=== PATIENT | female | born 1935 | race Caucasian/White ===

== ENCOUNTER 2018-10-27 04:45 | Inpatient (IN) | payer MEDICARE ==
[~2018-10-27] VITALS: Ht 160 cm; Wt 52.2 kg
[2018-10-27] MEDS ORDERED: POLY-VI-SOL W/I50 ML PO (04:50)
[2018-10-27] MEDS ORDERED: DONEPEZIL HCL10 MG PO (04:50)
[2018-10-27] MEDS ORDERED: IBUPROFEN400 MG PO (04:50)
[2018-10-27] MEDS ORDERED: SYNTHROID25 MCG PO (04:51)
[2018-10-27] MEDS ORDERED: ATIVAN1 MG PO (04:51)
[2018-10-27] MEDS ORDERED: MOBIC7.5 MG PO (04:51)
[2018-10-27] MEDS ORDERED: LISINOPRIL10 MG PO (04:51)
[2018-10-27] MEDS ORDERED: METOPROLOL TART50 MG PO (04:52)
[2018-10-27] MEDS ORDERED: ZOLOFT50 MG PO (04:52)
[2018-10-27] MEDS ORDERED: ZOCOR40 MG PO (04:52)
[2018-10-27] MEDS ORDERED: RISPERDAL1 MG PO (04:52)
[2018-10-27 05:38] LABS: BASOPHILS 0.1 % (0-2); EOSINOPHILS 0 % (0-7); HEMOGLOBIN 10.9 g/dL (12-16); IMMATURE GRANULOCYTES 0.2 % (0-5); LYMPHOCYTES 8.1 % (15-50); MCH 31.8 pg (26.0-34.0); MCV 96.2 fL (80.0-100.0); MEAN PLATELET VOLUME 10.5 fL (7.4-10.4); MONOCYTES 3.2 % (2-11); NEUTROPHILS 88.4 % (40-80); PLATELET COUNT 265 10x3/uL (130-400); RBC 3.43 10x6/uL (4.00-5.40); RDW 13.6 % (11.5-14.5); WBC 12.9 10x3/uL (4.8-10.8)
[2018-10-27 05:54] LABS: ALBUMIN 3.4 g/dL (3.4-5.0); ALKALINE PHOSPHATASE 96 U/L (46-116); ALT (SGPT) 63 U/L (10-68); BILIRUBIN - TOTAL 0.26 mg/dL (0.2-1.3); CALC OSMOLALITY 276 mosm/kg (275-300); CALCIUM 8.5 mg/dL (8.5-10.1); CARBON DIOXIDE 26.3 mmol/L (21.0-32.0); CHLORIDE - SERUM 97 mmol/L (98-107); CREATININE - SERUM 1.1 mg/dL (0.6-1.3); GLUCOSE 129 mg/dL (74-106); POTASSIUM - SERUM 3.6 mmol/L (3.5-5.1); PROTEIN - SERUM 7.3 g/dL (6.4-8.2); SODIUM 135 mmol/L (136-145); UREA NITROGEN 27 mg/dL (7-18); eGFR NON AFRICAN AMERICAN 50 mL/min (90-120)
[2018-10-27 05:58] VITALS: BP 145/56
[2018-10-27 06:10] LABS: CKMB 1.2 U/L (0.0-3.6); CREATINE KINASE 93 UL (21-215)
[2018-10-27 06:18] LABS: TROPONIN-I 0.145 ng/mL (0.000-0.060)
--- NOTE | 2018-10-27 06:45 | NUR ---
ATTEMPTED TO CALL REPORT TO [facility]. INFORMED THAT THE DAYSHIFT NURSE WHO WOULD BE TAKING REPORT HAD NO ARRIVED
[2018-10-27 07:00] LABS: APPEARANCE CLEAR (CLEAR); BILIRUBIN NEGATIVE (NEGATIVE); COLOR STRAW (YELLOW); GLUCOSE NEGATIVE (NEGATIVE); KETONE NEGATIVE (NEGATIVE); NITRITE NEGATIVE (NEGATIVE); PROTEIN NEGATIVE (NEGATIVE); UROBILINOGEN NORMAL (NORMAL)
[2018-10-27 07:01] LABS: BACTERIA MODERATE /hpf (NONE SEEN); EPITHELIAL CELLS 0-5 /hpf (0-5)
[2018-10-27] MEDS ORDERED: MYSOLINE 50 MG50 MG PO (08:02)
--- NOTE | 2018-10-27 08:04 | NUR ---
TRANSFER FROM ER BY STRETCHER. OREINTED TO ROOM. CALL LIGHT IN REACH. WILL CONT. PLAN OF CARE.
--- NOTE | 2018-10-27 08:10 | NUR ---
RECIVED FROM ER TO ROOM 2120, FAMILY AT SIDE. ADMT ASSESSMENT PER RN
[2018-10-27 08:12] VITALS: BP 153/63
[2018-10-27 09:08] VITALS: BMI 24.8
--- NOTE | 2018-10-27 10:07 | NUR ---
IN BOILER FITTER AT THIS TIME. WILL CONT. PLAN OF CARE.
[2018-10-27 11:52] VITALS: BP 167/72
--- NOTE | 2018-10-27 12:10 | NUR ---
SWOLLOW EVAL ORDERED DUE TO POSSIBLE ASPIRATION. TO KEEP NPO FOR NOW.
[2018-10-27 13:45] VITALS: Ht 160 cm; Wt 52.2 kg
--- NOTE | 2018-10-27 15:13 | NUR ---
PAULA WOOD BY AT BS.
[2018-10-27 15:31] VITALS: BP 171/82
--- NOTE | 2018-10-27 17:23 | NUR ---
IV STARTED TO LEFT FA WITH 22 GAUGE CATH X 1 STICK BY OBI MCFARLAND. LINE IS PATENT.
--- NOTE | 2018-10-27 17:24 | MORECARE ---
CASE MANAGEMENT DISCHARGE SUMMARY PATIENT: SP GUAMAN UNIT: [id number] ADM DATE: 10/27/18 AGE: 83 : 35 SEX: F ROOM/BED: D.8410 AUTHOR: ANNAMARIA MA PHYSICIAN: REFERRING PHYSICIAN: MARLENE GAYLE DO DATE OF SERVICE: 10/27/18 Discharge Plan Patient Name: SP GUAMAN Facility: [facility]:[place] : 1935 Planned Disposition: Retirement Facility Anticipated Discharge Date: 10/31/18 Discharge Date: Expected LOS: 4 Initial Reviewer: [id number] Initial Review Date: 10/27/2018 Generated: 10/27/18 6:24 pm DCPIA - Discharge Planning Initial Assessment Updated by [email or web address]: Sam Snow on 10/27/18 5:22 pm * Is the patient Alert and Oriented? Yes * How many steps to enter\exit or inside your home? RAMP * PCP DR. VILLA * Pharmacy [facility] * Preadmission Environment Home with Family * ADLs Independent * Equipment Walker * Other Equipment [facility] - MEDICAL EQUIPMENT PROVIDER * List name and contact numbers for known caregivers / representatives who currently or will assist patient after discharge: LEEANNE CHI, GRANDDAUGHTER/GUARDIAN, JANETTE GUAMAN, SON, * Verbal permission to speak to the caregivers and representatives has been obtained from the patient. N/A * Community resources currently utilized None * Please name any agencies selected above. NONE * Additional services required to return to the preadmission environment? Yes * Can the patient safely return to the preadmission environment? Yes * Has this patient been hospitalized within the prior 30 days at any hospital? No Coverage Notice Reviewer: [id number] - Sam Snow Notice Issued Date-Time: 10/27/2018 16:00 Notice Type: Patient Choice Letter Notice Delivered To: Other Relationship to Patient: daughter Child Caregiver Name: LEEANNE CHI Delivery Method: HAND - Hand Delivered Heather Days: Prior Verbal Notification: Recipient Understood Notice: Yes Recipient Signature: Yes Med Rec Note Co-signed by Attending: Coverage Notice Comment: [facility] Patient Name: PS GUAMAN Page 10348 at 1724 All edits/amendments must be made on the electronic document DICTATION DATE: 10/27/181723 R&D ENGINEER: HELEN 10/27/181723 RPT#: [id number] DC DATE: STATUS: ADM IN [facility] [address] [place] [address] END OF REPORT
--- NOTE | 2018-10-27 17:31 | MORECARE ---
CASE MANAGEMENT DISCHARGE SUMMARY PATIENT: SP GUAMAN UNIT: [id number] ADM DATE: 10/27/18 AGE: 83 : 35 SEX: F ROOM/BED: D.3850 AUTHOR: ANNAMARIA MA PHYSICIAN: REFERRING PHYSICIAN: MARLENE GAYLE DO DATE OF SERVICE: 10/27/18 Discharge Plan Patient Name: SP GUAMAN Facility: [facility]:[place] : 1935 Planned Disposition: Custodial Facility Anticipated Discharge Date: 10/31/18 Discharge Date: Expected LOS: 4 Initial Reviewer: [id number] Initial Review Date: 10/27/2018 Generated: 10/27/18 6:31 pm Comments DCP- Discharge Planning Updated by [email or web address]: Sam Snow on 10/27/18 4:[address] Patient Name: SP GUAMAN Admission Status: ER Accout number: [id number] Admission Date: 10-27-2018 : 1935 Admission Diagnosis: Attending: MARLENE GAYLE Current LOS: 1 Anticipated DC Date: 10-31-2018 Planned Disposition: Custodial Facility Primary Insurance: MEDICARE A & B PLANNED EXTERNAL PROVIDER: [facility], MEDICARE REHAB BED Discharge Planning Comments: CM MET WITH PT, PT'S GRANDDAUGHTER / GUARDIAN AND PT'S SON IN ROOM TO DISCUSS DISCHARGE PLANNING AND NEEDS. PT LIVES AT HOME DEPENDENTLY WITH HER ADULT GRANDDAUGHTER WHO ASSISTS WITH FEEDING IF NEEDED, BATHING FOR BALANCE ONLY AND MEDICATION MANAGEMENT. PT HAS A STANDARD WALKER FROM [facility]. PT HAS NO OUTSIDE SERVICES ASSISTING IN THE HOME. CM DISCUSSED AVAILABILITY OF HOME HEALTH, REHAB SERVICES AND MEDICAL EQUIPMENT. PT'S GRANDDAUGHTER WOULD LIKE REHAB FOR PT AT [facility]. SHE IS AWARE THAT PT WILL NEED [facility] SCREENING FOR ADMISSION WELL THREE MIDNIGHTS INPATIENT FOR MEDICARE TO COVER REHAB SERVICES. GRANDDAUGHTER AND PT'S SON ASSISTED WITH DONTAE COMPLETION. SIGNATURES FROM [place] AND DR. SINGH OBTAINED. CHOICE LETTER FOR [facility] SIGNED. CM TO SEND REFERRAL TO [facility] WELL SEND SCREENING TO [facility] ONCE PHYSICAL AND OCCUPATIONAL THERAPY EVALUATIONS ARE COMPLETED. Saw Feeder: Sam Snow DCPIA - Discharge Planning Initial Assessment Updated by [id number]: Sam Snow on 10/27/18 5:22 pm * Is the patient Alert and Oriented? Yes * How many steps to enter\exit or inside your home? RAMP * PCP DR. VILLA * Pharmacy [facility] * Preadmission Environment Home with Family * ADLs Independent * Equipment Walker * Other Equipment [facility] - MEDICAL EQUIPMENT PROVIDER * List name and contact numbers for known caregivers / representatives who currently or will assist patient after discharge: LEEANNE CHI, GRANDDAUGHTER/GUARDIAN, JANETTE GUAMAN, SON, * Verbal permission to speak to the caregivers and representatives has been obtained from the patient. N/A * Community resources currently utilized None * Please name any agencies selected above. NONE * Additional services required to return to the preadmission environment? Yes * Can the patient safely return to the preadmission environment? Yes * Has this patient been hospitalized within the prior 30 days at any hospital? No Coverage Notice Reviewer: [id number] - Sam Snow Notice Issued Date-Time: 10/27/2018 16:00 Notice Type: Patient Choice Letter Notice Delivered To: Other Relationship to Patient: Granddaughter Guest Services Director Name: LEEANNE CHI Delivery Method: HAND - Hand Delivered Heather Days: Prior Verbal Notification: Recipient Understood Notice: Yes Recipient Signature: Yes Med Rec Note Co-signed by Attending: Coverage Notice Comment: [facility] Last DP export: 10/27/18 4:24 p Patient Name: SP GUAMAN Page 31566 at 1731 All edits/amendments must be made on the electronic document DICTATION DATE: 10/27/181729 SLAB LIFTING SUPERVISOR: HELEN 10/27/181729 RPT#: [id number] DC DATE: STATUS: ADM IN [facility] [address] [place] [address] END OF REPORT
--- NOTE | 2018-10-27 19:45 | NUR ---
CHECKED ON PT, PT IS ALERT TO NAME ONLY, HAS MYOCLONIC MOVEMENTS THAT APPEAR TO BE NEUROLOGICAL BUT NURSE HAS NOT CHECKED HISTORY YET. PT IS ALERT, STARTED CRYING ABOUT SOMEONE TAKING HER CLOTHES, CALMED PT DOWN. PT TELEMETRY PLACED BACK ON. TALKED WITH PT ABOUT POC AND PT DID NOT RETAIN. WILL CONTINUE TO REORIENT AND EXPLAIN POC. PT UP TO RESTROOM WITH X1 ASSIST. BALANCE ISSUES DUE TO MYOCLONIC MOVEMENTS. PT URINATED A SMALL AMOUNT AND THAN COMPLAINED OF NOT BEING ABLE TO URINATE. EXPLAINED TO PT IT WAS REPORTED SHE PULLED MCMILLAN CATH OUT TODAY. CLEANED PT BED AND ASSISTED BACK TO BED. PLACED SCDS ON PT O2 PLACED BACK ON 2.5L NC. PT BEDALARM ON AND ACTIVE. BEDLOW AND CALL LIGHT IN REACH. DOOR OPEN AND FREQUENT CHECKS ON PT. WILL CPOC
[2018-10-27 20:00] VITALS: BP 175/85
--- NOTE | 2018-10-27 20:16 | NUR ---
PT YELLING OUT NURSE NAME, WENT AND CHECKED ON PT AND SHE IS UPSET THAT SOMETHING IS SQUEEZING LEGS. EDUCATED PT IN SCD'S AGAIN,. PT SAID OK THAN SET UP AND FREAKED OUT THAT SOMETHING WAS AGAIN SQUEEZING LEGS. TOOK OFF SCD'S BECAUSE PT WAS GETTING UPSET. PT UNABLE TO UNDERSTAND COGNETIVELY THAT IT IS PROTECTING AGAINST BLOOD CLOTS . PT BACK IN BED AND HAS NO S/S OF DISTRESS. PT BEDLOW AND CALL LIGHT IN REACH. BED ALARM ON AND ACTIVE. WILL CPOC
--- NOTE | 2018-10-28 | NUR ---
IV STARTED LEFT FOREARM 22G, PLACED YELLOW GOWN AND TELEMETRY BACK ONTO PT SINCE SHE HAD TOOK IT OFF AGAIN. WENT TO GET TUBING AND ANTIBIOTIC ONCE I CAME BACK PT HAD PULLED OUT IV WITH CATH INTACT AND TAKEN TELEMETRY OFF. CLEANED PT UP AGAIN AND PLACED BACK ON. PT HAS URGENCY AND CONSTANT FEELING THE NEED TO URINATE. PT HAS NO S/S OF DISTRESS. STONE ALARM ON, PT GETTING UP EVERY 30 MIN OR MORE TO URINATE/ATTEMPT TO URINATE AND STAYING IN BATHROOM 10-20 MINS EACH TIME.
--- NOTE | 2018-10-28 03:00 | NUR ---
PT TOOK TELEMETRY OFF ONCE AGAIN. HAS BEEN PLACED ON AT LEAST 4 TIMES. PT WONT KEEP ON, CANNOT KEEP AN IV IN PT EITHER. PT HAS NO S/S OF DISTRESS. WILL CPOC
--- NOTE | 2018-10-28 04:20 | NUR ---
PT ALARM WENT OFF ASSISTED PT TO RESTROOM. ALERT TO NAME ONLY. MYOCLONIC MOVEMENTS DECREASED BUT STILL ACTIVE. PT BREIF CHANGED DUE TO INCONT. URINE IN BREIF DARK,PINK COLORED. PT BACK TO BED. 2.5L O2 NC. PLACED TELEMETRY BACK ON AND ADJUSTED PT IN BED. PT HAS NO S/S OF DISTRESS. DENIES ANY NEEDS. BEDLOW AND STONE ALARM ON AND ACTIVE. WILL CPOC
[2018-10-28 05:17] LABS: BASOPHILS 0.2 % (0-2); EOSINOPHILS 0.2 % (0-7); HEMATOCRIT 29.1 % (36.0-48.0); HEMOGLOBIN 9.5 g/dL (12-16); IMMATURE GRANULOCYTES 0.3 % (0-5); LYMPHOCYTES 18.2 % (15-50); MCH 31.9 pg (26.0-34.0); MCHC 32.6 g/dL (31.0-37.0); MCV 97.7 fL (80.0-100.0); MEAN PLATELET VOLUME 10.7 fL (7.4-10.4); MONOCYTES 5.8 % (2-11); NEUTROPHILS 75.3 % (40-80); PLATELET COUNT 270 10x3/uL (130-400); RBC 2.98 10x6/uL (4.00-5.40); RDW 13.6 % (11.5-14.5); WBC 10.5 10x3/uL (4.8-10.8)
--- NOTE | 2018-10-28 06:35 | NUR ---
PT ASLEEP. RESP EVEN AND UNLABORED. 2.5L O2 NC. PT HAS NO S/S OF DISTRESS. WAKES UP COUGHING FREQUENTLY, NO PRODUCTION OBSEVED. PT BEDLOW AND CALL LIGHT IN REACH. STONE ALARM ON AND ACTIVE. WILL CPOC
[2018-10-28 07:51] LABS: ANION GAP 15.5 mmol/L (8-16); CALCIUM 8.2 mg/dL (8.5-10.1); CREATININE - SERUM 1.1 mg/dL (0.6-1.3); MAGNESIUM - SERUM 1.7 mg/dL (1.8-2.4); PHOSPHOROUS 3.8 mg/dL (2.5-4.9); POTASSIUM - SERUM 3.5 mmol/L (3.5-5.1)
[2018-10-28 08:39] VITALS: BP 156/72
--- NOTE | 2018-10-28 09:29 | NUR ---
RESTS IN BED WITH BED ALARM ON. FAMILY AT BS. CALL LIGHT IN REACH. WILL CONT. PLAN OF CARE.
--- NOTE | 2018-10-28 10:41 | NUR ---
REPORT RECEIVED. WILL CONTINUE WITH POC. PT CURRENTLY LYING SUPINE. CALL LIGHT W/I REACH. FAMILY AT BEDSIDE. PT IS AAO AND UP WITH ASSIST. PT HAS NO PIV. INITIATED NEW PIV TO THE L.FOREARM 22GA X1 ATTEMPT. CONFIRMED PATENCY BY FLUSHING WITH 10CC OF NS. RR EVEN AND UNLABORED ON 2L 02. PT DOES HAVE FREQUENT PRODUCTIVE COUGH. AM MEDICATIONS ADMINISTERED. NS INFUSING @100ML/HR. PT DENIES ANY NEEDS. WILL CTM. 0600 MEDICATIONS NOT GIVEN PER NIGHTSHIFT R/T SYSTEM SHUTDOWN AND NO ACCESS TO PYXIS. WILL RESTART NEXT DOSE.
[2018-10-28 11:36] VITALS: BP 162/56
--- NOTE | 2018-10-28 12:37 | MORECARE ---
CASE MANAGEMENT DISCHARGE SUMMARY PATIENT: SP GUAMAN UNIT: [id number] ADM DATE: 10/27/18 AGE: 83 : 35 SEX: F ROOM/BED: D.5870 AUTHOR: ANNAMARIA MA PHYSICIAN: REFERRING PHYSICIAN: MARLENE GAYLE DO DATE OF SERVICE: 10/28/18 Discharge Plan Patient Name: SP GUAMAN Facility: [facility]:[place] : 1935 Planned Disposition: Detention Facility Anticipated Discharge Date: 10/31/18 Discharge Date: Expected LOS: 4 Initial Reviewer: [id number] Initial Review Date: 10/27/2018 Generated: 10/28/18 1:37 pm Comments DCP- Discharge Planning Updated by [email or web address]: Sam Snow on 10/27/18 4:[address] Patient Name: SP GUAMAN Admission Status: ER Accout number: [id number] Admission Date: 10-27-2018 : 1935 Admission Diagnosis: Attending: MARLENE GAYLE Current LOS: 1 Anticipated DC Date: 10-31-2018 Planned Disposition: Detention Facility Primary Insurance: MEDICARE A & B PLANNED EXTERNAL PROVIDER: [facility], MEDICARE REHAB BED Discharge Planning Comments: CM MET WITH PT, PT'S GRANDDAUGHTER / GUARDIAN AND PT'S SON IN ROOM TO DISCUSS DISCHARGE PLANNING AND NEEDS. PT LIVES AT HOME DEPENDENTLY WITH HER ADULT GRANDDAUGHTER WHO ASSISTS WITH FEEDING IF NEEDED, BATHING FOR BALANCE ONLY AND MEDICATION MANAGEMENT. PT HAS A STANDARD WALKER FROM [facility]. PT HAS NO OUTSIDE SERVICES ASSISTING IN THE HOME. CM DISCUSSED AVAILABILITY OF HOME HEALTH, REHAB SERVICES AND MEDICAL EQUIPMENT. PT'S GRANDDAUGHTER WOULD LIKE REHAB FOR PT AT [facility]. SHE IS AWARE THAT PT WILL NEED [facility] SCREENING FOR ADMISSION WELL THREE MIDNIGHTS INPATIENT FOR MEDICARE TO COVER REHAB SERVICES. GRANDDAUGHTER AND PT'S SON ASSISTED WITH [facility] COMPLETION. SIGNATURES FROM [place] AND DR. SINGH OBTAINED. CHOICE LETTER FOR [facility] SIGNED. CM TO SEND REFERRAL TO [facility] WELL SEND SCREENING TO [facility] ONCE PHYSICAL AND OCCUPATIONAL THERAPY EVALUATIONS ARE COMPLETED. Overlocker: Sam Snow DCPIA - Discharge Planning Initial Assessment Updated by [id number]: Sam Snow on 10/27/18 5:22 pm * Is the patient Alert and Oriented? Yes * How many steps to enter\exit or inside your home? RAMP * PCP DR. VILLA * Pharmacy [facility] * Preadmission Environment Home with Family * ADLs Independent * Equipment Walker * Other Equipment [facility] - MEDICAL EQUIPMENT PROVIDER * List name and contact numbers for known caregivers / representatives who currently or will assist patient after discharge: LEEANNE CHI, GRANDDAUGHTER/GUARDIAN, JANETTE GUAMAN, SON, * Verbal permission to speak to the caregivers and representatives has been obtained from the patient. N/A * Community resources currently utilized None * Please name any agencies selected above. NONE * Additional services required to return to the preadmission environment? Yes * Can the patient safely return to the preadmission environment? Yes * Has this patient been hospitalized within the prior 30 days at any hospital? No External Providers External Provider: RENEE Stinson Next Contact Date: 10/28/2018 Service Request Date: Service Type: Resolution: Reviewer: Comments: External Provider: [facility] Next Contact Date: 10/28/2018 Service Request Date: Service Type: Resolution: Reviewer: Comments: Coverage Notice Reviewer: [id number] - Sam Snow Notice Issued Date-Time: 10/27/2018 16:00 Notice Type: Patient Choice Letter Notice Delivered To: Other Relationship to Patient: Granddaughter Licensed Practical Nurse Instructor Name: LEEANNE CHI Delivery Method: HAND - Hand Delivered Heather Days: Prior Verbal Notification: Recipient Understood Notice: Yes Recipient Signature: Yes Med Rec Note Co-signed by Attending: Coverage Notice Comment: [facility] Last DP export: 10/27/18 4:31 p Patient Name: SP GUAMAN Page 41474 at 1237 All edits/amendments must be made on the electronic document DICTATION DATE: 10/28/18 1237 LEMON GROWER: HELEN 10/28/18 1237 RPT#: [id number] DC DATE: STATUS: ADM IN [facility] [address] [place] [address] END OF REPORT
--- NOTE | 2018-10-28 12:58 | MORECARE ---
CASE MANAGEMENT DISCHARGE SUMMARY PATIENT: SP GUAMAN UNIT: [id number] ADM DATE: 10/27/18 AGE: 83 : 35 SEX: F ROOM/BED: D.6430 AUTHOR: ANNAMARIA MA PHYSICIAN: REFERRING PHYSICIAN: MARLENE GAYLE DO DATE OF SERVICE: 10/28/18 Discharge Plan Patient Name: SP GUAMAN Facility: [facility]:[place] : 1935 Planned Disposition: Assisted Facility Anticipated Discharge Date: 10/31/18 Discharge Date: Expected LOS: 4 Initial Reviewer: REG Initial Review Date: 10/27/2018 Generated: 10/28/18 1:58 pm Comments DCP- Discharge Planning Updated by REG: Sam Snow on 10/28/18 11:[address] Patient Name: SP GUAMAN Encounter No: [id number] : 1935 Primary Insurance: MEDICARE A & B Anticipated DC Date: 10-31-2018 Planned Disposition: Assisted Facility External Planned Provider: [facility], MEDICARE REHAB BED DCP follow-up note: CM REVIEWED CHART, PHYSICAL AND SPEECH THERAPY EVALUATIONS COMPLETED AND DOCUMENTED. CM FAXED CORDELIA DIGGS WITH SUPPORTING DOCUMENTS TO [employer], . CM FAXED REHAB REFERRAL TO NATE AT [facility], . CM CALLED TO [facility] AT [phone], NOTIFIED NATE OF REFERRAL. NATE WILL SCREEN FOR REHAB ADMISSION. CM WAITING [facility] SCREENING / CLEARANCE TO ENTER RETIREMENT FACILITY WELL ADMISSION DETERMINATION FROM [facility]. [place] Echevarria DCP- Discharge Planning Updated by [email or web address]: Sam Snow on 10/27/18 4:[address] Patient Name: SP GUAMAN Admission Status: ER Accout number: [id number] Admission Date: 10-27-2018 : 1935 Admission Diagnosis: Attending: MARLENE GAYLE Current LOS: 1 Anticipated DC Date: 10-31-2018 Planned Disposition: Assisted Facility Primary Insurance: MEDICARE A & B PLANNED EXTERNAL PROVIDER: [facility], MEDICARE REHAB BED Discharge Planning Comments: CM MET WITH PT, PT'S GRANDDAUGHTER / GUARDIAN AND PT'S SON IN ROOM TO DISCUSS DISCHARGE PLANNING AND NEEDS. PT LIVES AT HOME DEPENDENTLY WITH HER ADULT GRANDDAUGHTER WHO ASSISTS WITH FEEDING IF NEEDED, BATHING FOR BALANCE ONLY AND MEDICATION MANAGEMENT. PT HAS A STANDARD WALKER FROM [facility]. PT HAS NO OUTSIDE SERVICES ASSISTING IN THE HOME. CM DISCUSSED AVAILABILITY OF HOME HEALTH, REHAB SERVICES AND MEDICAL EQUIPMENT. PT'S GRANDDAUGHTER WOULD LIKE REHAB FOR PT AT [facility]. SHE IS AWARE THAT PT WILL NEED [facility] SCREENING FOR ADMISSION WELL THREE MIDNIGHTS INPATIENT FOR MEDICARE TO COVER REHAB SERVICES. GRANDDAUGHTER AND PT'S SON ASSISTED WITH [facility] COMPLETION. SIGNATURES FROM [place] AND DR. SINGH OBTAINED. CHOICE LETTER FOR [facility] SIGNED. CM TO SEND REFERRAL TO [facility] WELL SEND SCREENING TO [facility] ONCE PHYSICAL AND OCCUPATIONAL THERAPY EVALUATIONS ARE COMPLETED. Energy Broker: Sam Snow DCPIA - Discharge Planning Initial Assessment Updated by [email or web address]: Sam Snow on 10/27/18 5:22 pm * Is the patient Alert and Oriented? Yes * How many steps to enter\exit or inside your home? RAMP * PCP DR. VILLA * Pharmacy [facility] * Preadmission Environment Home with Family * ADLs Independent * Equipment Walker * Other Equipment [facility] - MEDICAL EQUIPMENT PROVIDER * List name and contact numbers for known caregivers / representatives who currently or will assist patient after discharge: LEEANNE CHI, GRANDDAUGHTER/GUARDIAN, JANETTE GUAMAN, SON, * Verbal permission to speak to the caregivers and representatives has been obtained from the patient. N/A * Community resources currently utilized None * Please name any agencies selected above. NONE * Additional services required to return to the preadmission environment? Yes * Can the patient safely return to the preadmission environment? Yes * Has this patient been hospitalized within the prior 30 days at any hospital? No Coverage Notice Reviewer: [id number] - Sam Snow Notice Issued Date-Time: 10/27/2018 16:00 Notice Type: Patient Choice Letter Notice Delivered To: Other Relationship to Patient: Granddaughter 911 Dispatcher Name: LEEANNE CHI Delivery Method: HAND - Hand Delivered Heather Days: Prior Verbal Notification: Recipient Understood Notice: Yes Recipient Signature: Yes Med Rec Note Co-signed by Attending: Coverage Notice Comment: [facility] Last DP export: 10/28/18 11:37 a Patient Name: SP GUAMAN Page 15219 at 1258 All edits/amendments must be made on the electronic document DICTATION DATE: 10/28/18 1257 BALL MACHINE OPERATOR: HELEN 10/28/18 1257 RPT#: [id number] DC DATE: STATUS: ADM IN [facility] [address] [place] [address] END OF REPORT
[2018-10-28 15:50] VITALS: BP 130/79
--- NOTE | 2018-10-28 15:57 | NUR ---
PT FAMILY STATED THAT PT HAD NOT BEEN URINATING MUCH USUAL. PERFORMED BLADDER SCAN ON PT AND PT HAD 178ML IN BLADDER. PT IS NOT DRINKING MUCH USUAL. PT DENIES ANY NEEDS. BEGAN INFUSION OF ABX. WILL CTM.
--- NOTE | 2018-10-28 18:34 | NUR ---
PT LYING SEMI FOWLERS. CALL LIGHT W/I REACH. FAMILY AT BEDSIDE. NS INFUSING @100ML/HR VIA L.FOR PIV. RR EVEN AND UNLABORED ON RA. PT IS AAO AND BEDFAST. PT DENIES ANY NEEDS AT THIS TIME. WILL PASS REPORT AND CONTINUE WITH POC.
[2018-10-28 20:06] VITALS: BP 149/68
--- NOTE | 2018-10-28 20:14 | NUR ---
INITIAL ROUNDS COMPLETED AT 1910 HRS. PT DENIED ANY DISCOMFORT. FAMILY AT BEDSIDE. ASSESSMENT COMPLETED AT 1925 HRS. VSS. SR PER CM HR 66. IV TO L WRIST WITH NS AT 100CC/HR. IV PATENT. O2 2LNC. LUINGS DIMINISHED IN BASES BILAT. FADING BRUISE TO R HIP NOTED. PT ALERT AT THAT TIME. PT INCONTINENT OF URINE AND STOOL. INCONTINENT CARE DONE, BED LINENS CHANGED. STAGE 2 NOTED TO R BUTTOCKS 2CM IN LENGHT. STAGE 1 TO BUTTOCKS 5CM IN DIAMETER. PT TOLERATED ACTIVITY WELL. SR UP X2, CALL LIGHT WITHIN REACH AND BED ALRM ON.
--- NOTE | 2018-10-28 23:07 | NUR ---
PM MEDS GIVEN WITHOUT DIFFICULTY. PT CURRENTLY WATCHING TV. NO DISTRESS NOTED. SR UP X2, CALL LIGHT WITHIN REACH AND BED ALARM ON.
[2018-10-29 00:38] VITALS: BP 148/73
--- NOTE | 2018-10-29 01:42 | NUR ---
PT RESTING WITH EYES CLOSED. RESP EVEN AND REGULAR. SR UP X2, CALL LIGHT WITHIN REACH AND BED ALARM ON.
--- NOTE | 2018-10-29 04:19 | NUR ---
PT RESTING WITH EYES CLOSED. RESP EVEN AND REGULAR. SR UP X2, CALL LIGHT WITHIN REACH AND BED ALARM ON.
[2018-10-29 04:29] VITALS: BP 140/68
--- NOTE | 2018-10-29 04:55 | NUR ---
PT INCONTINENT OF URINE AND STOOL. INCONTINENT CARE DONE, BED LINENS CHANGED. YASIR'S APPLIED TO BUTTOCKS. PT REPOSITIONED IN BED. WILL CONTINUE TO MONITOR. SR UP X2, CALL LIGHT WITHIN REACH AND BED ALARM ON.
--- NOTE | 2018-10-29 05:59 | NUR ---
VSS THROUGHOUT NIGHT. SR PER CM. PT DENIED ANY DISCOMFORT. NEEDS MET; WILL CONTINUE TO MONITOR.
[2018-10-29 06:20] LABS: BASOPHILS 0.3 % (0-2); EOSINOPHILS 2.8 % (0-7); HEMATOCRIT 30.3 % (36.0-48.0); HEMOGLOBIN 9.6 g/dL (12-16); IMMATURE GRANULOCYTES 0.3 % (0-5); LYMPHOCYTES 29.1 % (15-50); MCH 31.2 pg (26.0-34.0); MCHC 31.7 g/dL (31.0-37.0); MCV 98.4 fL (80.0-100.0); MEAN PLATELET VOLUME 10.3 fL (7.4-10.4); NEUTROPHILS 60.5 % (40-80); PLATELET COUNT 270 10x3/uL (130-400); RBC 3.08 10x6/uL (4.00-5.40); RDW 13.8 % (11.5-14.5); WBC 9.9 10x3/uL (4.8-10.8)
[2018-10-29 06:37] LABS: ALBUMIN 2.6 g/dL (3.4-5.0); ANION GAP 13.6 mmol/L (8-16); BILIRUBIN - TOTAL 0.22 mg/dL (0.2-1.3); CALCIUM 8.1 mg/dL (8.5-10.1); CARBON DIOXIDE 25.1 mmol/L (21.0-32.0); POTASSIUM - SERUM 3.7 mmol/L (3.5-5.1); PROTEIN - SERUM 5.8 g/dL (6.4-8.2)
[2018-10-29 06:40] LABS: CREATININE - SERUM 0.8 mg/dL (0.6-1.3)
--- NOTE | 2018-10-29 07:30 | NUR ---
RESTING QUIETLY RESP UNLABORED EYES CLOSED NAD NOTED
--- NOTE | 2018-10-29 09:00 | NUR ---
6343 PAGED THANIA RAJPUT APN PT MANUAL B/P 220/110 0844 NEW ORDER RECIVED FOR APRESOLINE 10 MG IVP FOR SYSTOLIC B/P GREATER THAN 170 0900 APRESOLINE 10 MG GIVEN SIVP FOR B/P 220/110
[2018-10-29 11:07] VITALS: BP 220/110
--- NOTE | 2018-10-29 15:03 | NUR ---
PT REFUSES TO ALLOW IV MED TO BE HUNG REFUSES RISPERIDAL
[2018-10-29 21:32] VITALS: BP 192/100
--- NOTE | 2018-10-29 22:00 | NUR ---
INITIAL ROUNDS COMPLETED AT 1915 HRSW. PT ATTEMPTIONG TO CRAWL OUT OF BED AND HAS PULLED TELEMETRY OFF. REPOSITIONED PT IN BED AND TELEMETRY PLACED BACK ON. ASSESSMENT COMPLETED AT [address] PER CM HR 105. O2 2LNC. LUNGS WITH LOOSE RHONCHI IN UPPER LOBES, DIMINISHED IN LOWER LOBES. PRODUCTIVE COUGH WITH WHITE SPUTUM NOTED. IV TO LFA WITH NS AT 10CC/HR. FLOYD. REFUSES SCD'S. BUTTOCKS RED. PT PULLED IV OUT, TOOK O2 OFF AND PULLED TELE OFF AT 2030 HRS. O2 AND TELE PLACED BACK ON. NEW IV STARTED #22 TO LFA WITH ATTEMPT X1. PT TOLERATED WELL. BP 192/100. APRESOLINE 10MG SIVP GIVEN. PM MEDS GIVEN. PT CURRENTLY PICKING AT BED COVERS. SR UP X3, CALL LIGHT WITHIN REACH AND BED ALARM ON.
[2018-10-29 23:55] VITALS: BP 100/64
--- NOTE | 2018-10-30 00:11 | NUR ---
PT PULLED O2 AND TELEMETRY OFF AND PULLED IV OUT. INCONTINENT OF URINE AND STOOL. INCONTINENT CARE DONE; BED LINENS CHANGED. O2 AND TELEMETRY PLACED PBACK ON. NEW IV STARTED #20 TO RFA WITH ATTEMPT X1. PT TOLERATED PROCEDURE WELL. REPOSITONED IN BED FOR COMFORT. SR UP X3, CALL LIGHT WITHIN REACH AND BED ALARM ON.
--- NOTE | 2018-10-30 02:13 | NUR ---
PT RESTING WITH EYES CLOSED. RESP EVEN AND REGULAR. SR UP X3,CALL LIGHT WITHIN REACH AND BED ALARM ON.
[2018-10-30 03:55] VITALS: BP 159/75
--- NOTE | 2018-10-30 05:00 | NUR ---
PT INCONTINENT OF URINE AND STOOL. INCONTINENT CARE DONE AND BED LINENS CHANGED. PT TOLERATED ACTIVITY WELL. CALL LIGHT WITHIN REACH AND BED ALARM ON.
--- NOTE | 2018-10-30 05:41 | NUR ---
VSS THIS AM. SR PER CM. PT DENIES ANY DISCOMFORT. NEEDS MET; WILL CONTINUE TO MONITOR.
[2018-10-30 07:11] LABS: BASOPHILS 0.2 % (0-2); EOSINOPHILS 2.6 % (0-7); HEMOGLOBIN 10.1 g/dL (12-16); IMMATURE GRANULOCYTES 0.4 % (0-5); MCH 31.7 pg (26.0-34.0); MCHC 32.6 g/dL (31.0-37.0); MCV 97.2 fL (80.0-100.0); MEAN PLATELET VOLUME 9.8 fL (7.4-10.4); MONOCYTES 7.4 % (2-11); NEUTROPHILS 62.4 % (40-80); PLATELET COUNT 303 10x3/uL (130-400); RBC 3.19 10x6/uL (4.00-5.40); RDW 13.4 % (11.5-14.5); WBC 10.8 10x3/uL (4.8-10.8)
--- NOTE | 2018-10-30 07:30 | NUR ---
ALERT AND ORIENTED.TELEMERTY SHOWS SR. 02 AT 2 L/M PER NC. RIGHT FA SL. LUNGS WITH CRACKLES. PT HAS A BED ALARM. FAMILY AT BEDSIDE. WILL MONITOR
[2018-10-30 07:33] LABS: ALBUMIN 2.6 g/dL (3.4-5.0); ALKALINE PHOSPHATASE 80 U/L (46-116); ALT (SGPT) 67 U/L (10-68); BILIRUBIN - TOTAL 0.21 mg/dL (0.2-1.3); CALC OSMOLALITY 281 mosm/kg (275-300); CALCIUM 8.1 mg/dL (8.5-10.1); CARBON DIOXIDE 26.3 mmol/L (21.0-32.0); CHLORIDE - SERUM 106 mmol/L (98-107); CREATININE - SERUM 0.7 mg/dL (0.6-1.3); GLUCOSE 80 mg/dL (74-106); MAGNESIUM - SERUM 1.8 mg/dL (1.8-2.4); POTASSIUM - SERUM 3.3 mmol/L (3.5-5.1); PROTEIN - SERUM 5.9 g/dL (6.4-8.2); SODIUM 142 mmol/L (136-145); eGFR NON AFRICAN AMERICAN 85 mL/min (90-120)
[2018-10-30 07:34] LABS: UREA NITROGEN 12 mg/dL (7-18)
[2018-10-30 09:40] VITALS: BP 170/74
--- NOTE | 2018-10-30 10:30 | NUR ---
WALKING WITH THERAPY TOLERATING WELL
[2018-10-30 14:30] VITALS: BP 134/68
--- NOTE | 2018-10-30 17:21 | NUR ---
UP TO BATH ROMM WITH HELP, BACK TO BED. DENIES ANY NEEDS, TELEMERTY SHOWS SR. CALL LIGHT IN REACH WITH SR UP. WILL MONITOR
[2018-10-30 17:53] VITALS: BP 163/85
[2018-10-30 20:00] VITALS: BP 182/80
--- NOTE | 2018-10-30 21:16 | NUR ---
INITIAL ROUNDS AND ASSESSMENT COMPLETED. PT RESTING IN BED. FREQUENTLY CALLING OUT. PULLING OFF TELEMETRY LEADS. CONFUSED. BED ALARM/FALL PRECAUTIONS. CURRENTLY WITH PIV TO RFA. IVF SALINE LOCKED IN BETWEEN ABT DUE TO PT PULLING OUT IVS. REFUSES SCDS. INCONTINENT WITH FREQUENT CHECKS AND CARE PROVIDED.
--- NOTE | 2018-10-30 22:33 | NUR ---
BEDTIME MEDS GIVEN. PT ALERT/ORIENTED TO PRINCIPAL HARDWARE ARCHITECT DETAILS OF HER LIFE. IV ABT UP AND INFUSING TO RFA. TELEMETRY LEADS REAPPLIED. CLEAN AND DRY. STONE MAT ALARM IN PLACE. MONITOR AND CPOC.
[2018-10-31] VITALS: BP 157/78
[2018-10-31 04:00] VITALS: BP 164/72
[2018-10-31 06:26] LABS: BASOPHILS 0.2 % (0-2); EOSINOPHILS 4.1 % (0-7); HEMATOCRIT 32.2 % (36.0-48.0); HEMOGLOBIN 10.5 g/dL (12-16); IMMATURE GRANULOCYTES 0.8 % (0-5); LYMPHOCYTES 29.9 % (15-50); MCH 31.6 pg (26.0-34.0); MCHC 32.6 g/dL (31.0-37.0); MEAN PLATELET VOLUME 10.3 fL (7.4-10.4); MONOCYTES 6.6 % (2-11); NEUTROPHILS 58.4 % (40-80); PLATELET COUNT 332 10x3/uL (130-400); RBC 3.32 10x6/uL (4.00-5.40); RDW 13.5 % (11.5-14.5); WBC 11.3 10x3/uL (4.8-10.8)
[2018-10-31 06:57] LABS: ALBUMIN 2.5 g/dL (3.4-5.0); ANION GAP 13.4 mmol/L (8-16); BILIRUBIN - TOTAL 0.24 mg/dL (0.2-1.3); CALCIUM 8.2 mg/dL (8.5-10.1); CREATININE - SERUM 0.8 mg/dL (0.6-1.3); POTASSIUM - SERUM 3.4 mmol/L (3.5-5.1)
--- NOTE | 2018-10-31 07:15 | NUR ---
ASSESSMENT DONE. DENIES NEEDS.
[2018-10-31 08:37] VITALS: BP 220/108
--- NOTE | 2018-10-31 10:27 | MORECARE ---
CASE MANAGEMENT DISCHARGE SUMMARY PATIENT: SP GUAMAN UNIT: [id number] ADM DATE: 10/27/18 AGE: 83 : 35 SEX: F ROOM/BED: D.9270 AUTHOR: ANNAMARIA MA PHYSICIAN: REFERRING PHYSICIAN: MARLENE GAYLE DO DATE OF SERVICE: 10/31/18 Discharge Plan Patient Name: SP GUAMAN Facility: [facility]:[place] : 1935 Planned Disposition: Longterm Facility Anticipated Discharge Date: 10/31/18 Discharge Date: Expected LOS: 4 Initial Reviewer: [id number] Initial Review Date: 10/27/2018 Generated: 10/31/18 11:27 am Comments DCP- Discharge Planning Updated by [id number]: Sam Snow on 10/31/18 9:[address] Patient Name: SP GUAMAN Encounter No: [id number] : 1935 Primary Insurance: MEDICARE A & B Anticipated DC Date: 10-31-2018 Planned Disposition: Longterm Facility External Planned Provider: [facility], MEDICARE REHAB BED DCP follow-up note: CM RECEIVED [facility] APPROVAL, FAXED WITH UPDATE TO [facility], . CM CALLED [facility] AT [facility] AT [phone]. [facility] IS STILL IN PROCESS OF SCREENING FOR REHAB ADMISSION. CM WAITING ADMISSION DETERMINATION FROM [facility]. NASH Echevarria DCP- Discharge Planning Updated by [id number]: Sam Snow on 10/28/18 11:[address] Patient Name: SP GUAMAN Encounter No: [id number] : 1935 Primary Insurance: MEDICARE A & B Anticipated DC Date: 10-31-2018 Planned Disposition: Longterm Facility External Planned Provider: [facility], MEDICARE REHAB BED DCP follow-up note: CM REVIEWED CHART, PHYSICAL AND SPEECH THERAPY EVALUATIONS COMPLETED AND DOCUMENTED. CM FAXED [facility]END [facility] WITH SUPPORTING DOCUMENTS TO [employer], . CM FAXED REHAB REFERRAL TO NATE AT [facility], . CM CALLED TO [facility] AT [phone], NOTIFIED NATE OF REFERRAL. NATE WILL SCREEN FOR REHAB ADMISSION. CM WAITING DONTAE SCREENING / CLEARANCE TO ENTER [facility] WELL ADMISSION DETERMINATION FROM [facility]. Sam Snow, CASE MANAGEMENT DCP- Discharge Planning Updated by [id number]: Sam Snow on 10/27/18 4:[address] Patient Name: SP GUAMAN Admission Status: ER Accout number: [id number] Admission Date: 10-27-2018 : 1935 Admission Diagnosis: Attending: MARLENE GAYLE Current LOS: 1 Anticipated DC Date: 10-31-2018 Planned Disposition: Longterm Facility Primary Insurance: MEDICARE A & B PLANNED EXTERNAL PROVIDER: [facility], MEDICARE REHAB BED Discharge Planning Comments: CM MET WITH PT, PT'S GRANDDAUGHTER / GUARDIAN AND PT'S SON IN ROOM TO DISCUSS DISCHARGE PLANNING AND NEEDS. PT LIVES AT HOME DEPENDENTLY WITH HER ADULT GRANDDAUGHTER WHO ASSISTS WITH FEEDING IF NEEDED, BATHING FOR BALANCE ONLY AND MEDICATION MANAGEMENT. PT HAS A STANDARD WALKER FROM [facility]. PT HAS NO OUTSIDE SERVICES ASSISTING IN THE HOME. CM DISCUSSED AVAILABILITY OF HOME HEALTH, REHAB SERVICES AND MEDICAL EQUIPMENT. PT'S GRANDDAUGHTER WOULD LIKE REHAB FOR PT AT [facility]. SHE IS AWARE THAT PT WILL NEED [facility] SCREENING FOR ADMISSION WELL THREE MIDNIGHTS INPATIENT FOR MEDICARE TO COVER REHAB SERVICES. GRANDDAUGHTER AND PT'S SON ASSISTED WITH DONTAE COMPLETION. SIGNATURES FROM [place] AND DR. SINGH OBTAINED. CHOICE LETTER FOR [facility] SIGNED. CM TO SEND REFERRAL TO [facility] WELL SEND SCREENING TO [facility] ONCE PHYSICAL AND OCCUPATIONAL THERAPY EVALUATIONS ARE COMPLETED. [place] Stitcher: Sam Snow DCPIA - Discharge Planning Initial Assessment Updated by [email or web address]: Sam Snow on 10/27/18 5:22 pm * Is the patient Alert and Oriented? Yes * How many steps to enter\exit or inside your home? RAMP * PCP DR. VILLA * Pharmacy [facility] * Preadmission Environment Home with Family * ADLs Independent * Equipment Walker * Other Equipment [facility] - MEDICAL EQUIPMENT PROVIDER * List name and contact numbers for known caregivers / representatives who currently or will assist patient after discharge: LEEANNE CHI, GRANDDAUGHTER/GUARDIAN, JANETTE GUAMAN, SON, * Verbal permission to speak to the caregivers and representatives has been obtained from the patient. N/A * Community resources currently utilized None * Please name any agencies selected above. NONE * Additional services required to return to the preadmission environment? Yes * Can the patient safely return to the preadmission environment? Yes * Has this patient been hospitalized within the prior 30 days at any hospital? No Coverage Notice Reviewer: [id number] Slim Snow Notice Issued Date-Time: 10/27/2018 16:00 Notice Type: Patient Choice Letter Notice Delivered To: Other Relationship to Patient: daughter Clinical Therapist Name: LEEANNE CHI Delivery Method: HAND - Hand Delivered Heather Days: Prior Verbal Notification: Recipient Understood Notice: Yes Recipient Signature: Yes Med Rec Note Co-signed by Attending: Coverage Notice Comment: [facility] Last DP export: 10/28/18 11:58 a Patient Name: SP GUAMAN Page [phone] at 1027 All edits/amendments must be made on the electronic document DICTATION DATE: 10/31/18 1027 TECHNICAL DATA ANALYST: HELEN 10/31/18 1027 RPT#: [id number] DC DATE: STATUS: ADM IN [facility] [address] [place] [address] END OF REPORT
[2018-10-31 11:28] VITALS: BP 146/62
--- NOTE | 2018-10-31 11:56 | MORECARE ---
CASE MANAGEMENT DISCHARGE SUMMARY PATIENT: SP GUAMAN UNIT: [id number] ADM DATE: 10/27/18 AGE: 83 : 35 SEX: F ROOM/BED: D.1370 AUTHOR: ANNAMARIA MA PHYSICIAN: REFERRING PHYSICIAN: MARLENE GAYLE DO DATE OF SERVICE: 10/31/18 Discharge Plan Patient Name: SP GUAMAN Facility: [facility]:[place] : 1935 Planned Disposition: [facility] Facility Anticipated Discharge Date: 11/01/18 Discharge Date: Expected LOS: 5 Initial Reviewer: [id number] Initial Review Date: 10/27/2018 Generated: 10/31/18 12:56 pm Comments DCP- Discharge Planning Updated by RGE: Sam Snow on 10/31/18 10:[address] Patient Name: SP GUAMAN Encounter No: [id number] : 1935 Primary Insurance: MEDICARE A & B Anticipated DC Date: 11-01-2018 Planned Disposition: [facility] Facility External Planned Provider: [facility], MEDICARE REHAB BED DCP follow-up note: CM RECEIVED CALL FROM NATE AT [facility] AT [phone], NATE ADVISED THEY WILL ACCEPT PT TOMORROW, 11-01-18 AND VAN WILL OPERATING ROOM RN AT 0900 IN THE MORNING. CM SPOKE TO PT AND GRANDDAUGHTER, LEEANNE CHI, IN ROOM, BOTH IN AGREEMENT WITH REHAB AT [facility] TOMORROW. IMPORTANT MESSAGE FROM MEDICARE PROVIDED AND EXPLAINED. FOR DISCHARGE, FAX DISCHARGE INFORMATION TO [facility] AT [phone]; NURSE REPORT TO BE CALLED TO ASHWIN AT [facility] AT [phone]. [facility] TO ARRANGE VAN TRANSPORTATION FOR 11-01-18 AT 0900AM. NASH Echevarria DCP- Discharge Planning Updated by [id number]: Sam Snwo on 10/31/18 9:[address] Patient Name: SP GUAMAN Encounter No: [id number] : 1935 Primary Insurance: MEDICARE A & B Anticipated DC Date: 10-31-2018 Planned Disposition: [facility] Facility External Planned Provider: [facility], MEDICARE REHAB BED DCP follow-up note: CM RECEIVED DONTAE APPROVAL, FAXED WITH UPDATE TO [facility], . CM CALLED NATE AT [facility] AT [phone]. NATE IS STILL IN PROCESS OF SCREENING FOR REHAB ADMISSION. CM WAITING ADMISSION DETERMINATION FROM [facility]. NASH Echevarria MANAGEMENT DCP- Discharge Planning Updated by [id number]: Sam Snow on 10/28/18 11:[address] Patient Name: SP GUAMAN Encounter No: [id number] : 1935 Primary Insurance: MEDICARE A & B Anticipated DC Date: 10-31-2018 Planned Disposition: [facility] External Planned Provider: [facility], MEDICARE REHAB BED DCP follow-up note: CM REVIEWED CHART, PHYSICAL AND SPEECH THERAPY EVALUATIONS COMPLETED AND DOCUMENTED. CM FAXED CORDELIA DIGGS WITH SUPPORTING DOCUMENTS TO [employer], . CM FAXED REHAB REFERRAL TO NATE AT [facility], . CM CALLED TO [facility] AT [phone], NOTIFIED NATE OF REFERRAL. NATE WILL SCREEN FOR REHAB ADMISSION. CM WAITING DONTAE SCREENING / CLEARANCE TO ENTER [facility] WELL ADMISSION DETERMINATION FROM [facility]. NASH Echevarria DCP- Discharge Planning Updated by [id number]: Sam Snow on 10/27/18 4:[address] Patient Name: SP GUAMAN Admission Status: ER Accout number: [id number] Admission Date: 10-27-2018 : 1935 Admission Diagnosis: Attending: MARLENE GAYLE Current LOS: 1 Anticipated DC Date: 10-31-2018 Planned Disposition: [facility] Facility Primary Insurance: MEDICARE A & B PLANNED EXTERNAL PROVIDER: [facility], MEDICARE REHAB BED Discharge Planning Comments: CM MET WITH PT, PT'S GRANDDAUGHTER / GUARDIAN AND PT'S SON IN ROOM TO DISCUSS DISCHARGE PLANNING AND NEEDS. PT LIVES AT HOME DEPENDENTLY WITH HER ADULT GRANDDAUGHTER WHO ASSISTS WITH FEEDING IF NEEDED, BATHING FOR BALANCE ONLY AND MEDICATION MANAGEMENT. PT HAS A STANDARD WALKER FROM [facility]. PT HAS NO OUTSIDE SERVICES ASSISTING IN THE HOME. CM DISCUSSED AVAILABILITY OF HOME HEALTH, REHAB SERVICES AND MEDICAL EQUIPMENT. PT'S GRANDDAUGHTER WOULD LIKE REHAB FOR PT AT [facility]. SHE IS AWARE THAT PT WILL NEED [facility]TAE SCREENING FOR ADMISSION WELL THREE MIDNIGHTS INPATIENT FOR MEDICARE TO COVER REHAB SERVICES. GRANDDAUGHTER AND PT'S SON ASSISTED WITH DONTAE COMPLETION. SIGNATURES FROM [place] AND DR. SINGH OBTAINED. CHOICE LETTER FOR [facility] SIGNED. CM TO SEND REFERRAL TO [facility] WELL SEND SCREENING TO [facility] ONCE PHYSICAL AND OCCUPATIONAL THERAPY EVALUATIONS ARE COMPLETED. Phototypesetting Equipment Monitor: Sam Snow DCPIA - Discharge Planning Initial Assessment Updated by [id number]: Sam Snow on 10/27/18 5:22 pm * Is the patient Alert and Oriented? Yes * How many steps to enter\exit or inside your home? RAMP * PCP DR. VILLA * Pharmacy [facility] * Preadmission Environment Home with Family * ADLs Independent * Equipment Walker * Other Equipment [facility] - MEDICAL EQUIPMENT PROVIDER * List name and contact numbers for known caregivers / representatives who currently or will assist patient after discharge: LEEANNE CHI, GRANDDAUGHTER/GUARDIAN, JANETTE GUAMAN, SON, * Verbal permission to speak to the caregivers and representatives has been obtained from the patient. N/A * Community resources currently utilized None * Please name any agencies selected above. NONE * Additional services required to return to the preadmission environment? Yes * Can the patient safely return to the preadmission environment? Yes * Has this patient been hospitalized within the prior 30 days at any hospital? No Coverage Notice Reviewer: [id number] - Sam Snow Notice Issued Date-Time: 10/27/2018 16:00 Notice Type: Patient Choice Letter Notice Delivered To: Other Relationship to Patient: Porfirio Skirt Panel Assembler Name: LEEANNE CHI Delivery Method: HAND - Hand Delivered Heather Days: Prior Verbal Notification: Recipient Understood Notice: Yes Recipient Signature: Yes Med Rec Note Co-signed by Attending: Coverage Notice Comment: [facility] Reviewer: [id number] Slim Snow Notice Issued Date-Time: 10/31/2018 11:25 Notice Type: IM Discharge Notice Notice Delivered To: Patient Relationship to Patient: Skirt Panel Assembler Name: Delivery Method: HAND - Hand Delivered Heather Days: Prior Verbal Notification: Recipient Understood Notice: Yes Recipient Signature: Yes Med Rec Note Co-signed by Attending: Coverage Notice Comment: Last DP export: 10/31/18 9:27 a Patient Name: SP GUAMAN Page 48524 at 1156 All edits/amendments must be made on the electronic document DICTATION DATE: 10/31/18 1156 COLLEGE BASKETBALL COACH: HELEN 10/31/18 1156 RPT#: [id number] DC DATE: STATUS: ADM IN [facility] [address] [place] [address] END OF REPORT
--- NOTE | 2018-10-31 11:56 | NUR ---
RESP UL ON . IV PATENT. DAUGHTER AT BS. WILL CONT. PLAN OF CARE.
[2018-10-31 15:43] VITALS: BP 112/61
--- NOTE | 2018-10-31 17:09 | NUR ---
WITHOUT CHANGES OR DISTRESS NOTED AT THIS TIME. FAMILY AT SIDE.
--- NOTE | 2018-10-31 19:26 | NUR ---
ASSESSMENT COMPLPETE, PT A&O. RESPERATIONS EVEN ON RA. IV TO RIGHT FA SL. SITE CLEAN AND DRY. PT DENIES PAIN OR NEEDS AT THIS TIME, BED LOW, CL IN REACH.
[2018-10-31 20:00] VITALS: BP 189/84
--- NOTE | 2018-10-31 21:52 | NUR ---
DIRECTOR OF TESTING AT BED SIDE, BATH AND LINEN CHANGE COMPLETE.
[2018-11-01] VITALS: BP 156/68
[2018-11-01 04:00] VITALS: BP 208/114
--- NOTE | 2018-11-01 04:12 | NUR ---
UNINDENTURED APPRENTICE AT BED SIDE TO OBTAIN VITALS.
[2018-11-01 05:52] LABS: BASOPHILS 0.3 % (0-2); EOSINOPHILS 4.8 % (0-7); HEMATOCRIT 33.3 % (36.0-48.0); HEMOGLOBIN 10.7 g/dL (12-16); IMMATURE GRANULOCYTES 0.8 % (0-5); LYMPHOCYTES 24.1 % (15-50); MCH 31.4 pg (26.0-34.0); MCHC 32.1 g/dL (31.0-37.0); MCV 97.7 fL (80.0-100.0); MEAN PLATELET VOLUME 10.3 fL (7.4-10.4); MONOCYTES 7.9 % (2-11); NEUTROPHILS 62.1 % (40-80); PLATELET COUNT 384 10x3/uL (130-400); RBC 3.41 10x6/uL (4.00-5.40); RDW 13.7 % (11.5-14.5); WBC 11.8 10x3/uL (4.8-10.8)
[2018-11-01 06:11] LABS: ALBUMIN 2.7 g/dL (3.4-5.0); ANION GAP 14.5 mmol/L (8-16); BILIRUBIN - TOTAL 0.29 mg/dL (0.2-1.3); CALCIUM 8.3 mg/dL (8.5-10.1); CARBON DIOXIDE 24.8 mmol/L (21.0-32.0); MAGNESIUM - SERUM 1.8 mg/dL (1.8-2.4); POTASSIUM - SERUM 3.3 mmol/L (3.5-5.1); PROTEIN - SERUM 6.4 g/dL (6.4-8.2)
--- NOTE | 2018-11-01 07:49 | NUR ---
ASSESSMENT DONE. DENIES NEEDS.
[2018-11-01] MEDS ORDERED: LISINOPRIL10 MG PO (08:18)
[2018-11-01] MEDS ORDERED: LEVOFLOXACIN500 MG PO (08:18)
[2018-11-01] MEDS ORDERED: ASPIRIN325 MG PO (08:18)
--- NOTE | 2018-11-01 08:55 | NUR ---
REPORT CALLED TO ASWHIN RAE LPN
--- NOTE | 2018-11-01 08:59 | NUR ---
DC TO [facility] PER KB
--- NOTE | 2018-11-01 09:07 | MORECARE ---
CASE MANAGEMENT DISCHARGE SUMMARY PATIENT: SP GUAMAN UNIT: [id number] ADM DATE: 10/27/18 AGE: 83 : 35 SEX: F ROOM/BED: D.8770 AUTHOR: ANNAMARIA MA PHYSICIAN: REFERRING PHYSICIAN: MARLENE GAYLE DO DATE OF SERVICE: 11/01/18 Discharge Plan Patient Name: SP GUAMAN Facility: [facility]:[place] : 1935 Planned Disposition: Custodial Facility Anticipated Discharge Date: 11/01/18 Discharge Date: 11/01/2018 Expected LOS: 5 Initial Reviewer: REG Initial Review Date: 10/27/2018 Generated: 11/01/18 10:07 am Comments DCP- Discharge Planning Updated by [id number]: Sam Snow on 11/01/18 8:[address] Patient Name: SP GUAMAN Encounter No: [id number] : 1935 Primary Insurance: MEDICARE A & B Anticipated DC Date: 11-01-2018 Planned Disposition: Custodial Facility External Planned Provider: [facility], MEDICARE REHAB BED DCP follow-up note: CM RECEIVED DISCHARGE, FAXED DISCHARGE INFORMATION TO [facility] AT [phone]. NURSE REPORT TO BE CALLED TO ASHWIN AT [facility] AT [phone]. [facility] TO ARRANGE VAN TRANSPORTATION FOR 11-01-18 AT 0900AM. NASH Echevarria MANGVIDA DCP- Discharge Planning Updated by [id number]: Sam Snow on 10/31/18 10:[address] Patient Name: SP GUAMAN Encounter No: [id number] : 1935 Primary Insurance: MEDICARE A & B Anticipated DC Date: 11-01-2018 Planned Disposition: Custodial Facility External Planned Provider: [facility], MEDICARE REHAB BED DCP follow-up note: CM RECEIVED CALL FROM NATE AT [facility] AT [phone], NATE ADVISED THEY WILL ACCEPT PT TOMORROW, 11-01-18 AND VAN WILL PENS AND PENCILS DIPPER AT 0900 IN THE MORNING. CM SPOKE TO PT AND GRANDDAUGHTER, LEEANNE CHI, IN ROOM, BOTH IN AGREEMENT WITH REHAB AT [facility] TOMORROW. IMPORTANT MESSAGE FROM MEDICARE PROVIDED AND EXPLAINED. FOR DISCHARGE, FAX DISCHARGE INFORMATION TO [facility] AT [phone]; NURSE REPORT TO BE CALLED TO ASHWIN AT [facility] AT [phone]. [facility] TO ARRANGE VAN TRANSPORTATION FOR 11-01-18 AT 0900AM. NASH Echevarria MANGEMENT DCP- Discharge Planning Updated by [id number]: Sam Snow on 10/31/18 9:[address] Patient Name: SP GUAMAN Encounter No: [id number] : 1935 Primary Insurance: MEDICARE A & B Anticipated DC Date: 10-31-2018 Planned Disposition: Custodial Facility External Planned Provider: [facility], MEDICARE REHAB BED DCP follow-up note: CM RECEIVED DONTAE APPROVAL, FAXED WITH UPDATE TO [facility], . CM CALLED NATE AT [facility] AT [phone]. NATE IS STILL IN PROCESS OF SCREENING FOR REHAB ADMISSION. CM WAITING ADMISSION DETERMINATION FROM [facility]. NASH Echevarria MANAGEMENT DCP- Discharge Planning Updated by [id number]: Sam Snow on 10/28/18 11:[address] Patient Name: SP GUAMAN Encounter No: [id number] : 1935 Primary Insurance: MEDICARE A & B Anticipated DC Date: 10-31-2018 Planned Disposition: Custodial Facility External Planned Provider: [facility], MEDICARE REHAB BED DCP follow-up note: CM REVIEWED CHART, PHYSICAL AND SPEECH THERAPY EVALUATIONS COMPLETED AND DOCUMENTED. CM FAXED CORDELIA DIGGS WITH SUPPORTING DOCUMENTS TO [employer], . CM FAXED REHAB REFERRAL TO NATE AT [facility], . CM CALLED TO [facility] AT [phone], NOTIFIED NATE OF REFERRAL. NATE WILL SCREEN FOR REHAB ADMISSION. CM WAITING DONTAE SCREENING / CLEARANCE TO ENTER [facility] FACILITY WELL ADMISSION DETERMINATION FROM [facility]. Sam Snow, CASE MANAGEMENT DCP- Discharge Planning Updated by [id number]: Sam Snow on 10/27/18 4:[address] Patient Name: SP GUAMAN Admission Status: ER Accout number: [id number] Admission Date: 10-27-2018 : 1935 Admission Diagnosis: Attending: MARLENE GAYLE Current LOS: 1 Anticipated DC Date: 10-31-2018 Planned Disposition: Custodial Facility Primary Insurance: MEDICARE A & B PLANNED EXTERNAL PROVIDER: [facility], MEDICARE REHAB BED Discharge Planning Comments: CM MET WITH PT, PT'S GRANDDAUGHTER / GUARDIAN AND PT'S SON IN ROOM TO DISCUSS DISCHARGE PLANNING AND NEEDS. PT LIVES AT HOME DEPENDENTLY WITH HER ADULT GRANDDAUGHTER WHO ASSISTS WITH FEEDING IF NEEDED, BATHING FOR BALANCE ONLY AND MEDICATION MANAGEMENT. PT HAS A STANDARD WALKER FROM [facility]. PT HAS NO OUTSIDE SERVICES ASSISTING IN THE HOME. CM DISCUSSED AVAILABILITY OF HOME HEALTH, REHAB SERVICES AND MEDICAL EQUIPMENT. PT'S GRANDDAUGHTER WOULD LIKE REHAB FOR PT AT [facility]. SHE IS AWARE THAT PT WILL NEED [facility] SCREENING FOR ADMISSION WELL THREE MIDNIGHTS INPATIENT FOR MEDICARE TO COVER REHAB SERVICES. GRANDDAUGHTER AND PT'S SON ASSISTED WITH DONTAE COMPLETION. SIGNATURES FROM [place] AND DR. SINGH OBTAINED. CHOICE LETTER FOR [facility] SIGNED. CM TO SEND REFERRAL TO [facility] WELL SEND SCREENING TO [facility] ONCE PHYSICAL AND OCCUPATIONAL THERAPY EVALUATIONS ARE COMPLETED. Camp Advisor: Sam Snow DCPIA - Discharge Planning Initial Assessment Updated by [id number]: Sam Snow on 10/27/18 5:22 pm * Is the patient Alert and Oriented? Yes * How many steps to enter\exit or inside your home? RAMP * PCP DR. VILLA * Pharmacy [facility] * Preadmission Environment Home with Family * ADLs Independent * Equipment Walker * Other Equipment [facility] - MEDICAL EQUIPMENT PROVIDER * List name and contact numbers for known caregivers / representatives who currently or will assist patient after discharge: LEEANNE CHI, GRANDDAUGHTER/GUARDIAN, MARITO GRIMES, * Verbal permission to speak to the caregivers and representatives has been obtained from the patient. N/A * Community resources currently utilized None * Please name any agencies selected above. NONE * Additional services required to return to the preadmission environment? Yes * Can the patient safely return to the preadmission environment? Yes * Has this patient been hospitalized within the prior 30 days at any hospital? No Coverage Notice Reviewer: [id number] Slim Snow Notice Issued Date-Time: 10/27/2018 16:00 Notice Type: Patient Choice Letter Notice Delivered To: Other Relationship to Patient: Granddaughter Door Opener Name: LEEANNE CHI Delivery Method: HAND - Hand Delivered Heather Days: Prior Verbal Notification: Recipient Understood Notice: Yes Recipient Signature: Yes Med Rec Note Co-signed by Attending: Coverage Notice Comment: [facility] Reviewer: [id number] Slim Snow Notice Issued Date-Time: 10/31/2018 11:25 Notice Type: IM Discharge Notice Notice Delivered To: Patient Relationship to Patient: Door Opener Name: Delivery Method: HAND - Hand Delivered Heather Days: Prior Verbal Notification: Recipient Understood Notice: Yes Recipient Signature: Yes Med Rec Note Co-signed by Attending: Coverage Notice Comment: Last DP export: 10/31/18 10:56 a Patient Name: SP GUAMAN Page 49253 at 0907 All edits/amendments must be made on the electronic document DICTATION DATE: 11/01/18905 CMO & PRESIDENT: HELEN 11/01/18905 RPT#: [id number] DC DATE:11/01/18 STATUS: DIS IN [facility] [address] [place] [address] END OF REPORT
--- NOTE | 2018-11-05 12:54 | EC ---
PATIENT:SP GUAMAN DATE OF SERVICE: 10/27/18 SEX: F MEDICAL RECORD: [id number] DATE OF : [birth year] LOCATION:D.M2 D.212 AGE OF PATIENT: 83 ADMISSION DATE: 10/27/18 REFERRING PHYSICIAN: INTERPRETING PHYSICIAN: DEBBI MITCHELL MD ECHOCARDIOGRAM REPORT ECHO CHARGES 4 ECHO COMPLETE Date: 10/27/18 CLINICAL DIAGNOSIS: [place] ECHOCARDIOGRAPHIC MEASUREMENTS (adult normal given) AC root (d.<3.7cm) 3.5 cm LV Septum d (<1.2 cm> 1.7 cm Valve Excursion 2.0 cm LV Septum (systole) 1.8 cm Left Atria (s.<4.0cm> 3.8 cm LVPW d(<1.2cm) 1.4 cm RV (d.<2.3cm) 3.4 cm LVPW (sytole) 1.9 cm LV diastole(<5.6CM) 5.2 cm MV E-F(>70mm/sec) cm LV systole 3.9 cm LVOT Diameter 2.0 cm MV exc.(>10mm) 1.8 cm Est.ejection fraction (50-75%) % DOPPLER: LVIT cm/sec A 62.0 cm/sec E 69.0 cm/sec LA cm/sec RVSP 46 mmHg LVOT 102 cm/sec AOP1/2T m/s Asc. Ao 151 cm/sec RVOT 97 cm/sec RA cm/sec PA 114 cm/sec AV Gradient Peak 9.10 mmHg AV Mean 5.07 mmHg AV Area 2.0 cm MV Gradient Peak 3.11 mmHg MV Mean 1.29 mmHg MV Area cm COMMENTS: Mathematics Instructor: 2 ESTEPHANIE RIVAS Environmental Services Director: 3 Dr. Mckeon TAPE# PACS Pericardial Effusion Y DATE OF SERVICE: 10/27/2018 Adequate 2-D, color flow and spectral Doppler, and M-mode. LVH is present. LV internal dimensions are normal. LV is mildly globally hypokinetic. Mildly reduced EF of 45% to 50%. Aortic valve sclerosis without stenosis by Doppler interrogation. Left atrium is normal at 3.8 cm. Mitral valve shows no prolapse. Trace MR. Right-sided chambers are grossly normal. Trace TR. ECHOCARDIOGRAM REPORT [id number] SP GUAMAN TRANSINT:[id number] Voice Confirmation ID: [id number] DOCUMENT ID: [id number] DEBBI MITCHELL MD at 1254 CC: [id number] DICTATION DATE: 10/27/18 141 CHARGEBACK SPECIALIST: 10/27/18 190 DIS IN 11/01/18 [facility] [address] [place] [id number]
== END 2018-11-01 09:00 | DRG 177 ==
LOC: D.ER 04:45 → D.M2 06:33
PROVIDERS: Family Medicine; ADMIT Family Medicine
DX: J69.0 Pneumonitis due to inhalation of food and vomit (principal); I21.4 Non-ST elevation (NSTEMI) myocardial infarction; N39.0 Urinary tract infection, site not specified; I24.8 Other forms of acute ischemic heart disease; G30.9 Alzheimer's disease, unspecified; F02.80 Dementia in other diseases classified elsewhere, unspecified severity, without behavioral disturbance, psychotic disturbance, mood disturbance, and anxiety; F20.9 Schizophrenia, unspecified; I11.0 Hypertensive heart disease with heart failure; I50.9 Heart failure, unspecified; J44.9 Chronic obstructive pulmonary disease, unspecified; E03.9 Hypothyroidism, unspecified; E78.5 Hyperlipidemia, unspecified; D64.9 Anemia, unspecified; G20 Parkinson's disease; M81.0 Age-related osteoporosis without current pathological fracture; Z87.891 Personal history of nicotine dependence

== ENCOUNTER 2018-11-02 06:16 | Inpatient (IN) | payer MEDICARE ==
[2018-11-02] VITALS (33 sets, daily range): BP systolic 122–215; BP diastolic 53–110; BMI 19.7
[~2018-11-02] VITALS: Ht 160 cm; Wt 47.0 kg
[~2018-11-02 06:16] MED LIST: ASPIRIN325 MG PO; ATIVAN1 MG PO; DONEPEZIL HCL10 MG PO; IBUPROFEN400 MG PO; LEVOFLOXACIN500 MG PO; LISINOPRIL10 MG PO; METOPROLOL TART50 MG PO; MOBIC7.5 MG PO; MYSOLINE 50 MG50 MG PO; POLY-VI-SOL W/I50 ML PO; RISPERDAL1 MG PO; SYNTHROID25 MCG PO; ZOCOR40 MG PO; ZOLOFT50 MG PO
--- NOTE | 2018-11-02 06:49 | NUR ---
URINE SENT TO LAB
[2018-11-02 06:59] LABS: APPEARANCE CLEAR (CLEAR); BILIRUBIN NEGATIVE (NEGATIVE); COLOR YELLOW (YELLOW); GLUCOSE NEGATIVE (NEGATIVE); KETONE NEGATIVE (NEGATIVE); NITRITE NEGATIVE (NEGATIVE); PROTEIN NEGATIVE (NEGATIVE); UROBILINOGEN NORMAL (NORMAL)
[2018-11-02 07:23] LABS: BASOPHILS 0.2 % (0-2); EOSINOPHILS 7.2 % (0-7); HEMATOCRIT 32.6 % (36.0-48.0); HEMOGLOBIN 10.5 g/dL (12-16); IMMATURE GRANULOCYTES 0.4 % (0-5); LYMPHOCYTES 28.7 % (15-50); MCH 31.5 pg (26.0-34.0); MCHC 32.2 g/dL (31.0-37.0); MCV 97.9 fL (80.0-100.0); MEAN PLATELET VOLUME 9.9 fL (7.4-10.4); NEUTROPHILS 55.5 % (40-80); PLATELET COUNT 354 10x3/uL (130-400); RBC 3.33 10x6/uL (4.00-5.40); RDW 13.9 % (11.5-14.5); WBC 9.3 10x3/uL (4.8-10.8)
[2018-11-02 07:30] LABS: INR 1.09 (0.85-1.17); PROTIME 13.6 SECONDS (11.6-15.0)
[2018-11-02 07:43] LABS: ALBUMIN 2.7 g/dL (3.4-5.0); ALKALINE PHOSPHATASE 73 U/L (46-116); BILIRUBIN - TOTAL 0.17 mg/dL (0.2-1.3); CALC OSMOLALITY 283 mosm/kg (275-300); CALCIUM 8.3 mg/dL (8.5-10.1); CARBON DIOXIDE 26.6 mmol/L (21.0-32.0); CHLORIDE - SERUM 107 mmol/L (98-107); GLUCOSE 93 mg/dL (74-106); PROTEIN - SERUM 6.1 g/dL (6.4-8.2); SODIUM 142 mmol/L (136-145); UREA NITROGEN 14 mg/dL (7-18)
[2018-11-02 07:44] LABS: ALT (SGPT) 32 U/L (10-68); CREATININE - SERUM 0.7 mg/dL (0.6-1.3); POTASSIUM - SERUM 3.9 mmol/L (3.5-5.1); eGFR NON AFRICAN AMERICAN 85 mL/min (90-120)
[2018-11-02 08:01] LABS: CKMB 1.8 U/L (0.0-3.6); CREATINE KINASE 38 UL (21-215)
[2018-11-02 08:02] LABS: TROPONIN-I 0.059 ng/mL (0.000-0.060)
--- NOTE | 2018-11-02 12:00 | NUR ---
RECIEVED PATIENT VIA SAVANNAH. VOICE NO CO AT TIME.
--- NOTE | 2018-11-02 13:00 | NUR ---
CARDENE INFUSING. 5MG PER HOUR. NO CO AT TIME.
--- NOTE | 2018-11-02 16:00 | NUR ---
PT SLEEPING NO DISTRESS NOTED.
--- NOTE | 2018-11-02 18:11 | NUR ---
REQUESTING BEDPAN FOR BM.
--- NOTE | 2018-11-02 19:04 | NUR ---
BEDSIDE SHIFT REPORT GIVEN BY DEPARTING RN USING SBAR. PT LAYING IN BED WITH EYES OPEN SHOWING NO SS OF DISTRESS. ALERT AND ORIENTED TO ONLY PERSON AT THIS TIME. PERRLA. ALL EXTREMETIES EQUAL IN STRENGTH. PULSES PALPATED T/O. F/C DRAINING TO GRAVITY WITH CLEAR YELLOW URINE IN DRAINAGE BAG. LEFT HAND PIV SL'D. VSS AT THIS TIME. SEE FLOWSHEET FOR FULL ASSESSMENT DETAILS. SAFETY MEASURES IN PLACE. CBIR.
--- NOTE | 2018-11-02 20:05 | NUR ---
PHONED DR. WEINER REGARDING HOME MEDS. ORDERS TO ONLY RESTART RISPERDAL AND ZOLOFT FOR NOW. SEE MAR FOR DETAILS.
--- NOTE | 2018-11-02 20:51 | NUR ---
HS MED GIVEN. SWALLOWED PO MED W/O DIFFICULTY. ADEQUATE ROM BUE AND DEXTERITY. SAFETY MEASURES IN PLACE. CBIR.
--- NOTE | 2018-11-02 23:04 | NUR ---
REASSESSMENT COMPLETE. NO CHANGES NOTED AT THIS TIME. ASLEEP SHOWING NO S/S OF DISTRESS. SAFETY MEASURES IN PLACE. CBIR.
[2018-11-03] VITALS (19 sets, daily range): BP systolic 104–177; BP diastolic 51–87; Ht 160 cm; Wt 47.0 kg
--- NOTE | 2018-11-03 01:36 | NUR ---
UPON ENTERING PT ROOM, INFLATED F/C BULB HANGING OVER BED RAIL. TIP INTACT. LEFT HAND IV PULLED OUT. PT LAYING IN BED SMILING. DENIES NAY PAIN. DOES NOT REMEMBER PULLING OUT LINES. F/C PLACED. BRIGHT RED URINE WITH SMALL BLOOD CLOTS DRAINING IN DRAINAGE BAG. 20G R FA PLACED AND CONCEILED WITH THE USE OF COBAN. TOLERATED WELL. MEPILEX APPLIED TO COCCYX.
[2018-11-03 04:48] LABS: BASOPHILS 0.2 % (0-2); EOSINOPHILS 5.4 % (0-7); HEMATOCRIT 36.6 % (36.0-48.0); HEMOGLOBIN 11.8 g/dL (12-16); IMMATURE GRANULOCYTES 0.5 % (0-5); LYMPHOCYTES 20.6 % (15-50); MCH 31.5 pg (26.0-34.0); MCHC 32.2 g/dL (31.0-37.0); MCV 97.6 fL (80.0-100.0); MEAN PLATELET VOLUME 10.3 fL (7.4-10.4); MONOCYTES 5.8 % (2-11); NEUTROPHILS 67.5 % (40-80); PLATELET COUNT 424 10x3/uL (130-400); RBC 3.75 10x6/uL (4.00-5.40); RDW 13.8 % (11.5-14.5); WBC 11.1 10x3/uL (4.8-10.8)
[2018-11-03 05:05] LABS: ANION GAP 15.3 mmol/L (8-16); CALCIUM 8.9 mg/dL (8.5-10.1); CARBON DIOXIDE 28.6 mmol/L (21.0-32.0); POTASSIUM - SERUM 3.9 mmol/L (3.5-5.1)
[2018-11-03 05:07] LABS: CREATININE - SERUM 0.9 mg/dL (0.6-1.3)
--- NOTE | 2018-11-03 08:30 | NUR ---
BREAKFAST HAS BEEN EATEN. PT FED SELF AND ATE OVER 50%. MENU CHOSEN FOR FOLLOWING MEALS. MORNING MEDICATIONS PROVIDED. NO DIFFICULTY SWALLOWING. ALERT AND CONVERSANT. FOLLOWS COMMANDS. CONFUSION TO TIME NOTED. SHIFT ASSESSMENT COMPLETED. PT NOTED TO HAVE GENERALIZED BRUISING OF MULTIPLE STAGES IN COLORING. BRUSING NOTED AT RIGHT HIP. HAS DRESSING TO COCCYX. PT HAS TREMORS NOTED TO UPPER EXTREMETIES. CRACKLES IN ALL LUNG BENZ THAT CLEAR WITH COUGHING. MCMILLAN CATHETER INTACT. SOME BLOOD NOTED IN URINE. RIGHT FOREARM IV SITE WRAPPED WITH COBAN. PT ON ROOM AIR, NO DISTRESS.
--- NOTE | 2018-11-03 11:55 | NUR ---
PT SET UP FOR LUNCH. TRAY PROVIDED. GRANDDAUGHTER AT BEDSIDE AT THIS TIME.
--- NOTE | 2018-11-03 13:17 | NUR ---
GRANDDAUGHTER ON UNIT. NOTIFIED PT HAS ROOM ASSIGNED ON FLOOR AND WILL BE TRANSFERRING SOON.
--- NOTE | 2018-11-03 13:33 | MORECARE ---
CASE MANAGEMENT DISCHARGE SUMMARY PATIENT: SP GUAMAN UNIT: [id number] ADM DATE: 11/02/18 AGE: 83 : 35 SEX: F ROOM/BED: [facility] AUTHOR: ANNAMARIA MA PHYSICIAN: REFERRING PHYSICIAN: GRACE WEINER MD DATE OF SERVICE: 11/03/18 Discharge Plan Patient Name: SP GUAMAN Facility: [facility]:[place] : 1935 Planned Disposition: Halfway Facility Anticipated Discharge Date: Discharge Date: Expected LOS: Initial Reviewer: [id number] Initial Review Date: 11/03/2018 Generated: 11/03/18 2:33 pm Patient Name: SP GUAMAN Page [phone] at 1333 All edits/amendments must be made on the electronic document DICTATION DATE: 11/03/18 133 BARBER OR BEAUTY SHOP MANAGER: HELEN 11/03/18 1332 RPT#: [id number] DC DATE: STATUS: ADM IN [facility] [address] [place] [address] END OF REPORT
--- NOTE | 2018-11-03 13:41 | MORECARE ---
CASE MANAGEMENT DISCHARGE SUMMARY PATIENT: SP GUAMAN UNIT: [id number] ADM DATE: 11/02/18 AGE: 83 : 35 SEX: F [facility] AUTHOR: ANNAMARIA MA PHYSICIAN: REFERRING PHYSICIAN: GRACE WEINER MD DATE OF SERVICE: 11/03/18 Discharge Plan Patient Name: SP GUAMAN Facility: [facility]:[place] : 1935 Planned Disposition: Care Home Facility Anticipated Discharge Date: Discharge Date: Expected LOS: Initial Reviewer: [email or web address] Initial Review Date: 11/03/2018 Generated: 11/03/18 2:40 pm DCPIA - Discharge Planning Initial Assessment Updated by [email or web address]: Estefani Castro on 11/03/18 1:37 pm * Is the patient Alert and Oriented? Yes * How many steps to enter\exit or inside your home? * PCP Verser * Pharmacy [facility] * Preadmission Environment Care Home Facility * Facility Name [facility], MEDICARE REHAB BED * ADLs Partial Dependent * Partial ADLs (Assistance needed) Ambulation Bathing Dressing Eating Medication Management Toileting Transfers * List name and contact numbers for known caregivers / representatives who currently or will assist patient after discharge: JANETTE GUAMAN - SON -- [phone] LEEANNE CHI - GRAND-DAUGHTER [phone] c [phone] * Verbal permission to speak to the caregivers and representatives has been obtained from the patient. Yes * Community resources currently utilized None * Additional services required to return to the preadmission environment? No * Can the patient safely return to the preadmission environment? Yes * Has this patient been hospitalized within the prior 30 days at any hospital? Yes Last DP export: 11/03/18 12:33 p Patient Name: SP GUAMAN Page 30131 at 1341 All edits/amendments must be made on the electronic document DICTATION DATE: 11/03/18 1340 DOOR GLASS INSTALLER: HELEN 11/03/18 1340 RPT#: [id number] DC DATE: STATUS: ADM IN [facility] [address] [place] [address] END OF REPORT
--- NOTE | 2018-11-03 14:17 | NUR ---
RECIVED TO ROOM 2101 PER . SCD'S APPLYED. GRANDDAUGHTER AT SIDE.
--- NOTE | 2018-11-03 18:08 | NUR ---
WITHOUT CHANGES OR DISTRESS NOTED AT THIS TIME.
--- NOTE | 2018-11-03 20:00 | NUR ---
RESUMIMG PT CARE. PT IS ALERT LAYING IN BED WITH NO C/O VOICED AT THIS TIME. RESPIRATIONS ARE EVEN AND UNLABORED. PT HAS A MCMILLAN. IV IN THE RIGHT FOREARM SALINE LOCK. BED IN LOW POSITION WITH CALL LIGHT IN REACH. SIDE RAILS UP X2. WILL CONTINUE TO MONITOR PT AND FOLLOW PLAN OF CARE.
[2018-11-04] VITALS: BP 127/44
[2018-11-04 04:00] VITALS: BP 150/62
--- NOTE | 2018-11-04 04:07 | NUR ---
PT LAYING IN BED WITH EYES CLOSED RESTING COMFORTABLY. RESPIRATIONS EVEN AND UNLABORED. BED IN LOW POSITION WITH CALL LIGHT IN REACH. SIDE RAILS UP X 2. WILL CONTINUE TO MONITOR PT AND FOLLOW PLAN OF CARE.
--- NOTE | 2018-11-04 06:23 | NUR ---
PT HAS BEEN CONFUSED MOST OF THE NIGHT. PT HAS PULLED OUT HER MCMILLAN CATHER. BED IN LOW POSITION WITH CALL LIGHT IN REACH. WILL CONTINUE TO MONITOR PT AND FOLLOW PLAN OF CARE.
--- NOTE | 2018-11-04 07:55 | NUR ---
REPORT RECEIVED. WILL CONTINUE WITH POC. PT CURRENTLY LYING SUPINE. CALL LIGHT W/I REACH. RR EVEN AND UNLABORED ON RA. R.FOR IS SALINE LOCKED. PT IS UP WITH MAX ASSIST AND AA BUT CONFUSED TO TIME AND PLACE. STONE ALARM ON AND FUNCTIONING PROPERLY. PT DENIES ANY NEEDS AT THIS TIME. WILL CTM.
[2018-11-04 09:02] VITALS: BP 172/77
--- NOTE | 2018-11-04 09:57 | MORECARE ---
CASE MANAGEMENT DISCHARGE SUMMARY PATIENT: SP GUAMAN UNIT: [id number] ADM DATE: 11/02/18 AGE: 83 : 35 SEX: F ROOM/BED: D.2101 AUTHOR: ANNAMARIA MA PHYSICIAN: REFERRING PHYSICIAN: GRACE WEINER MD DATE OF SERVICE: 11/04/18 Discharge Plan Patient Name: SP GUAMAN Facility: [facility]:[place] : 1935 Planned Disposition: Group Home Facility Anticipated Discharge Date: Discharge Date: Expected LOS: Initial Reviewer: [email or web address] Initial Review Date: 11/03/2018 Generated: 11/04/18 10:57 am Comments DCP- Discharge Planning Updated by [email or web address]: Estefani Castro on 11/04/18 8:[address] LATE ENTRY 11-03-18 @1341 Patient Name: SP GUAMAN Admission Status: ER Accout number: [id number] Admission Date: 11-02-2018 : 1935 Admission Diagnosis:HYPERTENSIVE URGENCY Attending: GRACE WEINER Current LOS: 2 Anticipated DC Date: Planned Disposition: Group Home Facility Primary Insurance: MEDICARE A & B Discharge Planning Comments: CM met with patient and grand-daughter Nicolette. Nicolette stated that the patient was in [facility] for Rehab. Nicolette states the plan is for the patient to return to [facility] for Rehab. Nicolette denies any discharge needs at this time. CM will continue to follow and assist as needed with discharge planning / needs. Wedger: Estefani Castro DCPIA - Discharge Planning Initial Assessment Updated by [email or web address]: Estefani Castro on 11/03/18 1:37 pm * Is the patient Alert and Oriented? Yes * How many steps to enter\exit or inside your home? * PCP Verser * Pharmacy [facility] * Preadmission Environment Group Home Facility * Facility Name [facility], MEDICARE REHAB BED * ADLs Partial Dependent * Partial ADLs (Assistance needed) Ambulation Bathing Dressing Eating Medication Management Toileting Transfers * List name and contact numbers for known caregivers / representatives who currently or will assist patient after discharge: JANETTE Smallsh- [phone] c [phone] NICOLETTE CHI - GRAND-DAUGHTER h [phone] c [phone] * Verbal permission to speak to the caregivers and representatives has been obtained from the patient. Yes * Community resources currently utilized None * Additional services required to return to the preadmission environment? No * Can the patient safely return to the preadmission environment? Yes * Has this patient been hospitalized within the prior 30 days at any hospital? Yes Last DP export: 11/03/18 12:41 p Patient Name: SP GUAMAN Page 73842 at 0957 All edits/amendments must be made on the electronic document DICTATION DATE: 11/04/18956 CHAIR SPRING ASSEMBLER: HELEN 11/04/18956 RPT#: [id number] DC DATE: STATUS: ADM IN [facility] [address] [place] [address] END OF REPORT
[2018-11-04 13:48] VITALS: BP 127/58
[2018-11-04 16:38] VITALS: BP 151/59
--- NOTE | 2018-11-04 19:27 | NUR ---
EVENING ROUNDS COMPLETED, PT SITTING UP IN BED WITH EYES OPEN, RR EVEN AND UNLABORED. INTRODUCED SELF TO PT. PT DOES NOT MAKE VERBAL RESPONSE DOES APPEAR TO BE FOLLOWING ME WITH HER EYES. NO S/S OF DISTRESS NOTED. NO VERBAL RESPONSE WHEN ASKED PT FURTHER NEEDS. BED IN LOW POSITION. CALL LIGHT IN REACH. WILL CTM.
[2018-11-04 20:00] VITALS: BP 136/56
--- NOTE | 2018-11-05 02:22 | NUR ---
PT SITTING UP IN BED WITH EYES OPEN, RR EVEN AND UNLABORED. BED IN LOW POSITION. NO S/S OF DISTRESS. CALL LIGHT IN REACH. WILL CTM.
[2018-11-05 04:00] VITALS: BP 164/64
--- NOTE | 2018-11-05 05:18 | NUR ---
PT SITTING UP IN BED WITH EYES OPEN, RR EVEN AND UNLABORED. BED IN LOW POSITION. SIDE RAILS UP X2. NO S/S OF DISTRESS. CALL LIGHT IN REACH. WILL CTM.
--- NOTE | 2018-11-05 05:22 | NUR ---
RESTING IN BED WITH EYES CLOSED. NO S/S OF DISTRESS OBSERVED. WILL CONT. POC.
[2018-11-05 06:12] LABS: ANION GAP 13.5 mmol/L (8-16); CALCIUM 8.5 mg/dL (8.5-10.1); CARBON DIOXIDE 26.8 mmol/L (21.0-32.0); POTASSIUM - SERUM 4.3 mmol/L (3.5-5.1)
[2018-11-05 06:28] LABS: BASOPHILS 0.2 % (0-2); EOSINOPHILS 7.7 % (0-7); HEMATOCRIT 32.5 % (36.0-48.0); HEMOGLOBIN 10.5 g/dL (12-16); IMMATURE GRANULOCYTES 0.3 % (0-5); LYMPHOCYTES 28.9 % (15-50); MCH 31.6 pg (26.0-34.0); MCHC 32.3 g/dL (31.0-37.0); MCV 97.9 fL (80.0-100.0); MEAN PLATELET VOLUME 10.4 fL (7.4-10.4); MONOCYTES 8.4 % (2-11); NEUTROPHILS 54.5 % (40-80); PLATELET COUNT 388 10x3/uL (130-400); RBC 3.32 10x6/uL (4.00-5.40); RDW 14.1 % (11.5-14.5)
--- NOTE | 2018-11-05 07:15 | NUR ---
REPORT RECIEVED AND MORNING ROUNDING COMPLETE. PT LAYING IN BED EYES CLOSED BREATHING SHALLOW AND EVEN. SHIFT ASSESMENT COMPLETE PT EASILY AROUSED. PT HAS TREMORS IN HANDS AND VERY LITTLE FACIAL MOVEMENT. PT STATES NO NEEDS AT THIS TIME CALL LIGHT WITHIN REACH AND BED IN LOWEST POSITION.
[2018-11-05 09:40] VITALS: BP 183/74
--- NOTE | 2018-11-05 10:02 | NUR ---
RESTS WITH EYES CLOSED. FAMILY AT BS. CALL LIGHT IN REACH. WILL MONITOR.
--- NOTE | 2018-11-05 12:33 | NUR ---
ORTHOSTATIC B/P LAYING- 146/69 SITTING- 162/82 STANDING- 149/74
[2018-11-05 13:51] VITALS: BP 142/67
--- NOTE | 2018-11-05 16:40 | MORECARE ---
CASE MANAGEMENT DISCHARGE SUMMARY PATIENT: SP GUAMAN UNIT: [id number] ADM DATE: 11/02/18 AGE: 83 : 35 SEX: F ROOM/BED: D.2101 AUTHOR: ANNAMARIA MA PHYSICIAN: REFERRING PHYSICIAN: GRACE ALFARO MD DATE OF SERVICE: 11/05/18 Discharge Plan Patient Name: SP GUAMAN Facility: [facility]:[place] : 1935 Planned Disposition: Half-Way Facility Anticipated Discharge Date: Discharge Date: Expected LOS: Initial Reviewer: [email or web address] Initial Review Date: 11/03/2018 Generated: 11/05/18 5:40 pm Comments DCP- Discharge Planning Updated by [email or web address]: Juani Cesar on 11/05/18 3:[address] DCP: Return to [facility] in a Medicare bed. Dr. Alfaro ready for discharge this afternoon however [facility] refused to take patient back this late in the day. Donita MCFARLAND @ [facility] stated she would accept the patient back tomorrow if early enough in the morning or she would have to wait till Wednesday. VANNA spoke to Olga rutherford/ Dr. Alfaro who completed the med req and placed the dc order in. VANNA faxed this information to Donita today and verified that she received the information. DONITA STATED SHE RECEIVED THE FAX INCLUDING THE MEDICATION REC AND THE DISCHARGE ORDER. She will need report to be called to her at [phone] before the patient leave the hospital. VANNA spoke to the patient's nurse Kayla and informed her of the above and she stated she would call report first thing in the morning. VANNA spoke to the patients adrian Will POA [phone] who stated she will be here around 8-8:30 tomorrow to transport the patient back to the facility. She stated she has an appointment to do her taxes and the patient will have to be ready by 9:00 for discharge. VANNA notified Kayla APODACA of this information as well. VANNA discussed the Important Medicare Message with Nicolette over the phone. She stated she is aware of this message and that it has Medicare's number on it to call if she felt her grandmother was being dc to soon. CM signed this form per phone consent of Nicolette CARPIO and left a copy in patient's room and also placed a signed form on the patient's chart. Nicolette denied further dc needs at this time. Juani APODACA, [facility] [phone] DCP- Discharge Planning Updated by [email or web address]: Estefani Castro on 11/04/18 8:[address] LATE ENTRY 11-03-18 @1341 Patient Name: SP GUAMAN Admission Status: ER Accout number: [id number] Admission Date: 11-02-2018 : 1935 Admission Diagnosis:HYPERTENSIVE URGENCY Attending: GRACE ALFARO Current LOS: 2 Anticipated DC Date: Planned Disposition: Half-Way Facility Primary Insurance: MEDICARE A & B Discharge Planning Comments: CM met with patient and grand-daughter Nicolette. Nicolette stated that the patient was in [facility] for Rehab. Nicolette states the plan is for the patient to return to [facility] for Rehab. Nicolette denies any discharge needs at this time. CM will continue to follow and assist as needed with discharge planning / needs. Loan Representative: Estefani Castro DCPIA - Discharge Planning Initial Assessment Updated by [email or web address]: Estefani Castro on 11/03/18 1:37 pm * Is the patient Alert and Oriented? Yes * How many steps to enter\exit or inside your home? * PCP Verser * Pharmacy [facility] * Preadmission Environment Half-Way Facility * Facility Name [facility], MEDICARE REHAB BED * ADLs Partial Dependent * Partial ADLs (Assistance needed) Ambulation Bathing Dressing Eating Medication Management Toileting Transfers * List name and contact numbers for known caregivers / representatives who currently or will assist patient after discharge: JANETTE GUAMAN - SON -h- [phone] c [phone] NICOLETTE CHI - GRAND-DAUGHTER h [phone] c [phone] * Verbal permission to speak to the caregivers and representatives has been obtained from the patient. Yes * Community resources currently utilized None * Additional services required to return to the preadmission environment? No * Can the patient safely return to the preadmission environment? Yes * Has this patient been hospitalized within the prior 30 days at any hospital? Yes Last DP export: 11/04/18 8:57 am Patient Name: SP GUAMAN Page [id number] at 1640 All edits/amendments must be made on the electronic document DICTATION DATE: 11/05/18 [facility] STRINGER UP SOLDERING MACHINE: HELEN 11/05/18 [facility] RPT#: [id number] DC DATE: STATUS: ADM IN [facility] [address] [place] [address] END OF REPORT
[2018-11-05 17:02] VITALS: BP 141/72
[2018-11-05 20:00] VITALS: BP 184/66
--- NOTE | 2018-11-05 20:40 | NUR ---
ALERT/AWAKE ORIENTED TO NAME ONLY. ADMIN SCHED PO MEDS WITH APPLESAUCE AND SIPS OF APPLEJUICE.
[2018-11-06 00:40] VITALS: BP 142/54
--- NOTE | 2018-11-06 01:30 | NUR ---
TRANSITIONAL NURSE CLEANING FOR INCONTINENCE OF URINE.
[2018-11-06 04:00] VITALS: BP 155/58
[2018-11-06 05:17] LABS: BASOPHILS 0.2 % (0-2); EOSINOPHILS 8.4 % (0-7); HEMATOCRIT 31.3 % (36.0-48.0); HEMOGLOBIN 10.1 g/dL (12-16); IMMATURE GRANULOCYTES 0.3 % (0-5); MCH 31.4 pg (26.0-34.0); MCHC 32.3 g/dL (31.0-37.0); MCV 97.2 fL (80.0-100.0); MEAN PLATELET VOLUME 10.5 fL (7.4-10.4); MONOCYTES 7.7 % (2-11); NEUTROPHILS 53.4 % (40-80); PLATELET COUNT 345 10x3/uL (130-400); RBC 3.22 10x6/uL (4.00-5.40); RDW 13.7 % (11.5-14.5)
[2018-11-06 05:34] LABS: ANION GAP 13.7 mmol/L (8-16); CALCIUM 8.5 mg/dL (8.5-10.1); CARBON DIOXIDE 25.8 mmol/L (21.0-32.0); CREATININE - SERUM 0.8 mg/dL (0.6-1.3); POTASSIUM - SERUM 4.5 mmol/L (3.5-5.1)
--- NOTE | 2018-11-06 06:00 | NUR ---
ADMIN SCHED MED WITH SIPS OF WATER, SWALLOWING WITHOUT DIFFICULTY. WANTED HOB OF BED LOWER TO SLEEP.
--- NOTE | 2018-11-06 07:15 | NUR ---
REPORT RECIEVED AND MORNING ROUNDING COMPLETE. PT SITTING UP IN BED READY FOR FAMILY TO BE HERE AND READY TO GO HOME. CALL LIGHT WITHIN REACH AND BED IN THE LOWEST POSITION.
--- NOTE | 2018-11-06 08:39 | NUR ---
PT DISCHARGE, EXPLAINED DISCAHRGE INSTRUCTION TO HER AND HER GRANDDAUGHTER HER POA. STATED THEY UNDERSTOOD AND SIGNED PAPERS. REMOVED PT'S PIV FROM RIGHT FOREARM, CATH INTACT. NO BLEEDING NOTED. TOOK PT TO THE FRONT TO MEET HER FAMILY VIA WHEELCHAIR.
--- NOTE | 2018-11-07 08:08 | MORECARE ---
CASE MANAGEMENT DISCHARGE SUMMARY PATIENT: SP GUAMAN UNIT: [id number] ADM DATE: 11/02/18 AGE: 83 : 35 SEX: F ROOM/BED: D.2101 AUTHOR: ANNAMARIA MA PHYSICIAN: REFERRING PHYSICIAN: GRACE ALFARO MD DATE OF SERVICE: 11/07/18 Discharge Plan Patient Name: SP GUAMAN Facility: [facility]:[place] : 1935 Planned Disposition: Detention Facility Anticipated Discharge Date: 11/06/18 Discharge Date: 11/06/2018 Expected LOS: 4 Initial Reviewer: [email or web address] Initial Review Date: 11/03/2018 Generated: 11/07/18 9:08 am Comments DCP- Discharge Planning Updated by [email or web address]: Sam Snow on 11/07/18 7:[address] DCP: Return to [facility] in a Medicare bed. Dr. Alfaro ready for discharge this afternoon however [facility] refused to take patient back this late in the day. Donita MCFARLAND @ [facility] stated she would accept the patient back tomorrow if early enough in the morning or she would have to wait till Wednesday. VANNA spoke to Olga rutherford/ Dr. Alfaro who completed the med req and placed the dc order in. VANNA faxed this information to Donita today and verified that she received the information. DONITA STATED SHE RECEIVED THE FAX INCLUDING THE MEDICATION REC AND THE DISCHARGE ORDER. She will need report to be called to her at [phone] before the patient leave the hospital. VANNA spoke to the patient's nurse Kayla and informed her of the above and she stated she would call report first thing in the morning. VANNA spoke to the patients adrian Will POA [phone] who stated she will be here around 8-8:30 tomorrow to transport the patient back to the facility. She stated she has an appointment to do her taxes and the patient will have to be ready by 9:00 for discharge. VANNA notified Kayla APODACA of this information as well. VANNA discussed the Important Medicare Message with Nicolette over the phone. She stated she is aware of this message and that it has Medicare's number on it to call if she felt her grandmother was being dc to soon. CM signed this form per phone consent of Nicolette CARPIO and left a copy in patient's room and also placed a signed form on the patient's chart. Nicolette denied further dc needs at this time. Juani APODACA, [facility] [phone] DCP- Discharge Planning Updated by [email or web address]: Estefani Castro on 11/04/18 8:[address] LATE ENTRY 11-03-18 @1341 Patient Name: SP GUAMAN Admission Status: ER Accout number: [id number] Admission Date: 11-02-2018 : 1935 Admission Diagnosis:HYPERTENSIVE URGENCY Attending: GRACE ALFARO Current LOS: 2 Anticipated DC Date: Planned Disposition: Detention Facility Primary Insurance: MEDICARE A & B Discharge Planning Comments: CM met with patient and grand-daughter Nicolette. Nicolette stated that the patient was in [facility] for Rehab. Nicolette states the plan is for the patient to return to [facility] for Rehab. Nicolette denies any discharge needs at this time. CM will continue to follow and assist as needed with discharge planning / needs. Field Aide: Estefani Castro DCPIA - Discharge Planning Initial Assessment Updated by [email or web address]: Estefani Castro on 11/03/18 1:37 pm * Is the patient Alert and Oriented? Yes * How many steps to enter\exit or inside your home? * PCP Verser * Pharmacy [facility] * Preadmission Environment Detention Facility * Facility Name [facility], MEDICARE REHAB BED * ADLs Partial Dependent * Partial ADLs (Assistance needed) Ambulation Bathing Dressing Eating Medication Management Toileting Transfers * List name and contact numbers for known caregivers / representatives who currently or will assist patient after discharge: JANETTE GUAMAN - SON -h- [phone] c [phone] NCIOLETTE CHI - GRAND-DAUGHTER h [phone] c [phone] * Verbal permission to speak to the caregivers and representatives has been obtained from the patient. Yes * Community resources currently utilized None * Additional services required to return to the preadmission environment? No * Can the patient safely return to the preadmission environment? Yes * Has this patient been hospitalized within the prior 30 days at any hospital? Yes Last DP export: 11/05/18 3:40 pm Patient Name: SP GUAMAN Page 60587 at 0808 All edits/amendments must be made on the electronic document DICTATION DATE: 11/07/18806 EMPLOYEE SERVICES MANAGER: HELEN 11/07/18806 RPT#: [id number] DC DATE:11/06/18 STATUS: DIS IN [facility] [address] [place] [address] END OF REPORT
--- NOTE | 2018-11-07 08:52 | MORECARE ---
CASE MANAGEMENT DISCHARGE SUMMARY PATIENT: SP GUAMAN UNIT: [id number] ADM DATE: 11/02/18 AGE: 83 : 35 SEX: F ROOM/BED: D.2101 AUTHOR: ANNAMARIA MA PHYSICIAN: REFERRING PHYSICIAN: GRACE ALFARO MD DATE OF SERVICE: 11/07/18 Discharge Plan Patient Name: SP GUAMAN Facility: [facility]:[place] : 1935 Planned Disposition: Nursing Home Facility Anticipated Discharge Date: 11/06/18 Discharge Date: 11/06/2018 Expected LOS: 4 Initial Reviewer: [id number] Initial Review Date: 11/03/2018 Generated: 11/07/18 9:52 am Comments DCP- Discharge Planning Updated by [email or web address]: Sam Snow on 11/07/18 7:[address] DCP: Return to [facility] in a Medicare bed. Dr. Alfaro ready for discharge this afternoon however [facility] refused to take patient back this late in the day. Donita MCFARLAND @ [facility] stated she would accept the patient back tomorrow if early enough in the morning or she would have to wait till Wednesday. VANNA spoke to Olga rutherford/ Dr. Alfaro who completed the med req and placed the dc order in. VANNA faxed this information to Donita today and verified that she received the information. DONITA STATED SHE RECEIVED THE FAX INCLUDING THE MEDICATION REC AND THE DISCHARGE ORDER. She will need report to be called to her at [phone] before the patient leave the hospital. VANNA spoke to the patient's nurse Kayla and informed her of the above and she stated she would call report first thing in the morning. VANNA spoke to the patients adrian Will POA [phone] who stated she will be here around 8-8:30 tomorrow to transport the patient back to the facility. She stated she has an appointment to do her taxes and the patient will have to be ready by 9:00 for discharge. VANNA notified Kayla APODACA of this information as well. VANNA discussed the Important Medicare Message with Nicolette over the phone. She stated she is aware of this message and that it has Medicare's number on it to call if she felt her grandmother was being dc to soon. CM signed this form per phone consent of Nicolette CARPIO and left a copy in patient's room and also placed a signed form on the patient's chart. Nicolette denied further dc needs at this time. Juani APODACA, [facility] [phone] DCP- Discharge Planning Updated by [email or web address]: Estefani Castro on 11/04/18 8:[address] LATE ENTRY 11-03-18 @1341 Patient Name: SP GUAMAN Admission Status: ER Accout number: [id number] Admission Date: 11-02-2018 : 1935 Admission Diagnosis:HYPERTENSIVE URGENCY Attending: GRACE ALFARO Current LOS: 2 Anticipated DC Date: Planned Disposition: Nursing Home Facility Primary Insurance: MEDICARE A & B Discharge Planning Comments: CM met with patient and grand-daughter Nicolette. Nicolette stated that the patient was in [facility] for Rehab. Nicolette states the plan is for the patient to return to [facility] for Rehab. Nicolette denies any discharge needs at this time. CM will continue to follow and assist as needed with discharge planning / needs. Plasma Processor: Estefani Castro DCPIA - Discharge Planning Initial Assessment Updated by [id number]: Estefani Castro on 11/03/18 1:37 pm * Is the patient Alert and Oriented? Yes * How many steps to enter\exit or inside your home? * PCP Verser * Pharmacy [facility] * Preadmission Environment Nursing Home Facility * Facility Name [facility], MEDICARE REHAB BED * ADLs Partial Dependent * Partial ADLs (Assistance needed) Ambulation Bathing Dressing Eating Medication Management Toileting Transfers * List name and contact numbers for known caregivers / representatives who currently or will assist patient after discharge: JANETTE GUAMAN - SON -h- [phone] c [phone] NICOLETTE CHI - GRAND-DAUGHTER h [phone] c [phone] * Verbal permission to speak to the caregivers and representatives has been obtained from the patient. Yes * Community resources currently utilized None * Additional services required to return to the preadmission environment? No * Can the patient safely return to the preadmission environment? Yes * Has this patient been hospitalized within the prior 30 days at any hospital? Yes Last DP export: 11/07/18 7:08 am Patient Name: SP GUAMAN Page 42500 at 0852 All edits/amendments must be made on the electronic document DICTATION DATE: 11/07/18850 DIRECT SERVICE PROFESSIONAL: HELEN 11/07/18850 RPT#: [id number] DC DATE:11/06/18 STATUS: DIS IN [facility] [address] [place] [address] END OF REPORT
== END 2018-11-06 08:44 | DRG 304 ==
LOC: D.ER 06:16 → D.EDHOLD 09:36 → D.CVICU 09:36 → D.M2 09:36 → D.CVICU 09:55 → D.M2 11-03 14:14
PROVIDERS: Family Medicine; ADMIT Internal Medicine Nephrology
DX: I16.9 Hypertensive crisis, unspecified (principal); G93.41 Metabolic encephalopathy; D50.9 Iron deficiency anemia, unspecified; E78.5 Hyperlipidemia, unspecified; I25.10 Atherosclerotic heart disease of native coronary artery without angina pectoris; E03.9 Hypothyroidism, unspecified; G30.9 Alzheimer's disease, unspecified; F02.80 Dementia in other diseases classified elsewhere, unspecified severity, without behavioral disturbance, psychotic disturbance, mood disturbance, and anxiety; F20.9 Schizophrenia, unspecified

== ENCOUNTER 2019-02-01 19:16 | Inpatient (IN) | payer MEDICARE ==
[~2019-02-01] VITALS: Ht 160 cm; Wt 45.4 kg
--- NOTE | 2019-02-01 19:31 | NUR ---
TRAUMA BAND NUMBER [id number]
--- NOTE | 2019-02-01 21:05 | NUR ---
C COLLAR REMOVED PER EDP MCCARTHY.
[2019-02-01 21:11] LABS: BASOPHILS 0.1 % (0-2); EOSINOPHILS 0.1 % (0-7); HEMATOCRIT 32.7 % (36.0-48.0); IMMATURE GRANULOCYTES 0.2 % (0-5); LYMPHOCYTES 7.1 % (15-50); MCH 31.8 pg (26.0-34.0); MCHC 33.6 g/dL (31.0-37.0); MCV 94.5 fL (80.0-100.0); MEAN PLATELET VOLUME 10.2 fL (7.4-10.4); MONOCYTES 5.4 % (2-11); NEUTROPHILS 87.1 % (40-80); RBC 3.46 10x6/uL (4.00-5.40); RDW 13.7 % (11.5-14.5); WBC 12.2 10x3/uL (4.8-10.8)
[2019-02-01 21:32] LABS: PLATELET COUNT 250 10x3/uL (130-400)
[2019-02-01 21:36] LABS: ALBUMIN 3.5 g/dL (3.4-5.0); ANION GAP 12.8 mmol/L (8-16); BILIRUBIN - TOTAL 0.28 mg/dL (0.2-1.3); CALCIUM 8.4 mg/dL (8.5-10.1); CREATININE - SERUM 0.9 mg/dL (0.6-1.3); POTASSIUM - SERUM 3.8 mmol/L (3.5-5.1); PROTEIN - SERUM 7.1 g/dL (6.4-8.2)
[2019-02-01 21:45] LABS: THYROID STIMULATING HORMONE 3.01 uIU/mL (0.36-3.74)
[2019-02-01 21:49] LABS: TROPONIN-I 0.187 ng/mL (0.000-0.060)
--- NOTE | 2019-02-01 22:45 | NUR ---
PT ARRIVED TO FLOOR VIA STRETCHER. FAMILY AT BEDSIDE. ORIENTED TO SELF. DENIES PAIN. IV RIGHT WRIST SL. BRUISE TO RIGHT FOREHEAD. PLACED PT ON AND OFF BEDPAN TO VOID. STONE ON. BED LOWEST POSITION, SRX2, CL IN REACH. WILL CONT TO MONITOR
[2019-02-02] VITALS: BP 193/94
[2019-02-02 02:43] VITALS: BMI 17.7
[2019-02-02 04:30] VITALS: BP 176/82
[2019-02-02 07:22] LABS: APPEARANCE HAZY (CLEAR); BACTERIA MANY /hpf (NONE SEEN); BILIRUBIN NEGATIVE (NEGATIVE); COLOR YELLOW (YELLOW); EPITHELIAL CELLS 0-5 /hpf (0-5); GLUCOSE NEGATIVE (NEGATIVE); KETONE NEGATIVE (NEGATIVE); NITRITE POSITIVE (NEGATIVE); PROTEIN NEGATIVE (NEGATIVE); SPECIFIC GRAVITY 1.015 (1.005-1.020); UROBILINOGEN NORMAL (NORMAL)
--- NOTE | 2019-02-02 07:35 | NUR ---
INITIAL ROUNDING, PATIENT AWAKE AND ON HER RIGHT SIDE, FAMILY AT THE BEDSIDE. PATIENT DENIES PAIN.
[2019-02-02 09:39] VITALS: BP 151/74
[2019-02-02 12:53] VITALS: BP 176/86
[2019-02-02 13:09] VITALS: BMI 17.7
[2019-02-02 16:51] VITALS: Ht 160 cm; Wt 45.4 kg
[2019-02-02 16:57] VITALS: BP 183/116
--- NOTE | 2019-02-02 19:26 | NUR ---
PT TELEMETRY WAS FOUND ON FLOOR. THIS NURSE TRIED TO PLACE TELEMETRY BACK ON PT AND PT REFUSED AND IMMEDIATLY PULLED THEM OFF. EDUCATED THAT DOCTOR WANTS HER TO WEAR THIS TO MONITOR HER HEART BECAUSE SHE IS IN THE HOSPITAL. PT STATED "IM NOT IN THE HOSPITAL AND YOU NEED TO WEAR IT NOT ME." PT CONTINUE TO PULL OF TELEMETRY EVERYTIME THIS NURSE TRIED TO PLACE THEM ON HER. WILL TRY AGAIN AT A LATER TIME. CALL LIGHT IN REACH.
[2019-02-02 20:17] VITALS: BP 179/99
--- NOTE | 2019-02-02 21:00 | NUR ---
PT RECIEVED NIGHT TIME MEDS WHOLE. CHANGED BED SHEETS DUE TO INCONT. PT WAS OBSERVED TRYING TO GET OUT OF BED. BED ALARM ON. PUT PT BACK TO BED. WILL CONTINUE TO MONITOR. CALL LIGHT IN REACH.
--- NOTE | 2019-02-02 22:56 | NUR ---
PT RECIEVED MEDS WHOLE. NO COMPLICATIONS. BED IN LOW. BED ALARM ON. PT OBSERVED TRYING TO GET OUT OF BED. BED LINENS WET CHANGED LINENS. CLEANED PT. PT CONFUSED AND HOLLERING FOR LEEANNE. WHICH IS HER GRANDDAUGHTER. WILL CONTINUE TO MONITOR. CALL LIGHT IN REACH.
--- NOTE | 2019-02-03 04:31 | NUR ---
PT OBSERVED TRYING TO GET OUT OF BED MULTIPLE TIMES AFTER BEING CHANGED AND THIS NURSE AND OTHER NURSE ASSISTED PT TO CHAIR. CHAIR ALARM ON. BED SIDE TABLE IN FRONT OF PT AND CALL LIGHT IN REACH. ABBI
[2019-02-03 04:44] VITALS: BP 176/100
--- NOTE | 2019-02-03 05:51 | NUR ---
ASSISTED PT FROM CHAIR TO BATHROOM AND THEN BACK TO BED. CL IN REACH. WCTM DENIES NEEDS AT THIS TIME.
--- NOTE | 2019-02-03 07:36 | NUR ---
PATIENT AWAKE AND RESTING SUPINE IN BED, LAB STAFF IN THE ROOM COLLECTING BLOOD. PATIENT DENIES PAIN.
[2019-02-03 07:49] LABS: BASOPHILS 0.1 % (0-2); EOSINOPHILS 0.3 % (0-7); HEMATOCRIT 33.4 % (36.0-48.0); HEMOGLOBIN 11.2 g/dL (12-16); IMMATURE GRANULOCYTES 0.2 % (0-5); LYMPHOCYTES 17.5 % (15-50); MCH 32.1 pg (26.0-34.0); MCHC 33.5 g/dL (31.0-37.0); MCV 95.7 fL (80.0-100.0); MEAN PLATELET VOLUME 10.4 fL (7.4-10.4); MONOCYTES 9.4 % (2-11); NEUTROPHILS 72.5 % (40-80); PLATELET COUNT 260 10x3/uL (130-400); RBC 3.49 10x6/uL (4.00-5.40); RDW 13.9 % (11.5-14.5); WBC 11.5 10x3/uL (4.8-10.8)
[2019-02-03 08:00] VITALS: BP 166/88
[2019-02-03 08:01] LABS: ALBUMIN 3.2 g/dL (3.4-5.0); ALKALINE PHOSPHATASE 101 U/L (46-116); ALT (SGPT) 23 U/L (10-68); BILIRUBIN - TOTAL 0.42 mg/dL (0.2-1.3); CALC OSMOLALITY 271 mosm/kg (275-300); CALCIUM 8.5 mg/dL (8.5-10.1); CARBON DIOXIDE 28.5 mmol/L (21.0-32.0); CHLORIDE - SERUM 97 mmol/L (98-107); CREATININE - SERUM 0.7 mg/dL (0.6-1.3); GLUCOSE 89 mg/dL (74-106); POTASSIUM - SERUM 3.7 mmol/L (3.5-5.1); PROTEIN - SERUM 6.9 g/dL (6.4-8.2); SODIUM 135 mmol/L (136-145); UREA NITROGEN 20 mg/dL (7-18); eGFR NON AFRICAN AMERICAN 84 mL/min (90-120)
--- NOTE | 2019-02-03 08:21 | NUR ---
PATIENT REFUSES TO ALLOW THIS NURSE TO PLACE TELE MONITOR BACK ON. MONITOR STATION NOTIFIED.
--- NOTE | 2019-02-03 11:32 | NUR ---
Rehab Note- Acute Inpatient Rehab prescreen order received. The patient continues to have an acute work up at this time. Has pending OT & PT consults. WIll conitnue to follow at this time. Thank you for this referral! Juana Sykes RN CLinical Liaison, [facility] Re[facility]
--- NOTE | 2019-02-03 11:57 | NUR ---
Rehab Note- Visited with the patient and her granddaughter that is her security officer- they are interested in her discharging to [facility] for therapy d/t it is closer to home. Thank you for this referral! Juana Sykes RN Clinical Liaison, [facility] Re[facility]
[2019-02-03 12:00] VITALS: BP 150/94
--- NOTE | 2019-02-03 14:46 | MORECARE ---
CASE MANAGEMENT DISCHARGE SUMMARY PATIENT: SP GUAMAN UNIT: [id number] ADM DATE: 02/01/19 AGE: 84 : 35 SEX: F ROOM/BED: D.1210 AUTHOR: ANNAMARIA MA PHYSICIAN: REFERRING PHYSICIAN: IDALIA SHABAZZ MD DATE OF SERVICE: 02/03/19 Discharge Plan Patient Name: SP GUAMAN Facility: [facility]:[place] : 1935 Planned Disposition: Long-Term Facility Anticipated Discharge Date: 02/06/19 Discharge Date: Expected LOS: 5 Initial Reviewer: [id number] Initial Review Date: 02/03/2019 Generated: 02/03/19 3:46 pm Comments DCP- Discharge Planning Updated by [email or web address]: Tammy Tobias on 02/03/19 1:[address] Patient Name: SP GUAMAN Admission Status: ER Accout number: [id number] Admission Date: 02-01-2019 : 1935 Admission Diagnosis: Attending: IDALIA GASPAR Current LOS: 2 Anticipated DC Date: 02-06-2019 Planned Disposition: Long-Term Facility Primary Insurance: MEDICARE A & B Discharge Planning Comments: CM MET WITH PATIENT'S POA, LEEANNE CHI. THE FAMILY STATES THEY WANT HER TO GO TO [facility] FOR SNF, ELENA SIGNED. CM CONTACTED NATE AND DOCUMENTS SENT FOR SNF, STATES WOULD BE WEDNESDAY BEFORE THEY CAN TAKE HER IF INSURANCE APPROVES. CM WILL SEND UPDATED CLINICAL NEEDED . CM TO FOLLOW AND ASSIST NEEDED WITH DC PLANNING/NEEDS. SEND OT AND PT NOTES WHEN AVAILABLE. THANK YOU Pan Shover: Tammy Tobias External Providers External Provider: [facility] Next Contact Date: Service Request Date: Service Type: Resolution: Reviewer: Comments: Coverage Notice Reviewer: [id number] - Tammy Tobias Notice Issued Date-Time: 02/03/2019 14:11 Notice Type: Patient Choice Letter Notice Delivered To: Other Relationship to Patient: Power of Assistant Terminal Manager Philosophy Specialist Name: LEEANNE CHI Delivery Method: HAND - Hand Delivered Heather Days: Prior Verbal Notification: Recipient Understood Notice: Yes Recipient Signature: Yes Med Rec Note Co-signed by Attending: Coverage Notice Comment: ELENA FOR [facility]. Patient Name: SP GUAMAN Page [phone] at 1446 All edits/amendments must be made on the electronic document DICTATION DATE: 02/03/19 1446 WHOLESALE REPRESENTATIVE: HELEN 02/03/19 1446 RPT#: [id number] DC DATE: STATUS: ADM IN [facility] [address] [place] [address] END OF REPORT
--- NOTE | 2019-02-03 15:55 | MORECARE ---
CASE MANAGEMENT DISCHARGE SUMMARY PATIENT: SP GUAMAN UNIT: [id number] ADM DATE: 02/01/19 AGE: 84 : 35 SEX: F ROOM/BED: D.1210 AUTHOR: ANNAMARIA MA PHYSICIAN: REFERRING PHYSICIAN: IDALIA SHABAZZ MD DATE OF SERVICE: 02/03/19 Discharge Plan Patient Name: SP GUAMAN Facility: [facility]:[place] : 1935 Planned Disposition: Long-Term Facility Anticipated Discharge Date: 02/06/19 Discharge Date: Expected LOS: 5 Initial Reviewer: [email or web address] Initial Review Date: 02/03/2019 Generated: 02/03/19 4:54 pm Comments DCP- Discharge Planning Updated by [id number]: Tammy Tobias on 02/03/19 1:[address] Patient Name: SP GUAMAN Admission Status: ER Accout number: [id number] Admission Date: 02-01-2019 : 1935 Admission Diagnosis: Attending: IDALIA GASPAR Current LOS: 2 Anticipated DC Date: 02-06-2019 Planned Disposition: Long-Term Facility Primary Insurance: MEDICARE A & B Discharge Planning Comments: CM MET WITH PATIENT'S POALEEANNE. THE FAMILY STATES THEY WANT HER TO GO TO [facility] FOR SNF, ELENA SIGNED. CM CONTACTED NATE AND DOCUMENTS SENT FOR SNF, STATES WOULD BE WEDNESDAY BEFORE THEY CAN TAKE HER IF INSURANCE APPROVES. CM WILL SEND UPDATED CLINICAL NEEDED . CM TO FOLLOW AND ASSIST NEEDED WITH DC PLANNING/NEEDS. SEND OT AND PT NOTES WHEN AVAILABLE. THANK YOU Industrial Ecologist: Tammy Tobias Coverage Notice Reviewer: [id number] - Tammy Tobias Notice Issued Date-Time: 02/03/2019 14:11 Notice Type: Patient Choice Letter Notice Delivered To: Other Relationship to Patient: Power of Institutional Cook Special Forces Engineer Sergeant Name: LEEANNE CHI Delivery Method: HAND - Hand Delivered Heather Days: Prior Verbal Notification: Recipient Understood Notice: Yes Recipient Signature: Yes Med Rec Note Co-signed by Attending: Coverage Notice Comment: ELENA FOR [facility]. Last DP export: 02/03/19 1:46 pm Patient Name: SP GUAMAN Page [phone] at 1555 All edits/amendments must be made on the electronic document DICTATION DATE: 02/03/191553 HARNESS PULLER: HELEN 02/03/191553 RPT#: [id number] DC DATE: STATUS: ADM IN [facility] [address] [place] [address] END OF REPORT
[2019-02-03 16:30] VITALS: BP 137/69
--- NOTE | 2019-02-03 19:36 | NUR ---
PT RESTING QUIETLY CALL LIGHT IN REACH. NO S/S OF DISTRESS OR PAIN NOTED. BED ALARM ON. BED IN LOW. 3 SIDE RAILS UP. WCTM O2 ON 3L.
[2019-02-03 20:00] VITALS: BP 186/90
--- NOTE | 2019-02-03 22:45 | NUR ---
PT REFUSING TO TAKE HS MEDS. PT COPYING WHAT THIS NURSE IS SAYING. THIS NURSE WOULD SAY "LETS TAKE THESE MEDS" PT STATED AFTER " YOU TAKE THOSE MEDS." EVERY TIME THIS NURSE WOULD PUT PILL CUP TO MOUTH PT WOULD LOCK HER LIPS TOGETHER AND NOT OPEN HER MOUTH. THIS NURSE TRIED TWICE 30 MIN BETWEEN EACH ATTEMPT TO HAVE PT TAKE PM MEDICATION. ABBI
[2019-02-04 00:05] VITALS: BP 165/81
--- NOTE | 2019-02-04 03:31 | NUR ---
PT RESTING QUIETLY. CALL LIGHT IN REACH. NO S/S OF DISTRESS OR PAIN. BED IN LOW. SIDE RAILS X2. BED ALARM ON. PT CLEAN AND DRY. WCTM
[2019-02-04 04:15] VITALS: BP 185/99
--- NOTE | 2019-02-04 05:25 | NUR ---
I have reviewed this patient and I concur with the Shift Assessment completed by the Licensed Practical Nurse today this shift.
[2019-02-04 05:59] LABS: BASOPHILS 0 % (0-2); EOSINOPHILS 2.5 % (0-7); HEMOGLOBIN 10.8 g/dL (12-16); IMMATURE GRANULOCYTES 0.1 % (0-5); LYMPHOCYTES 20.7 % (15-50); MCH 32.2 pg (26.0-34.0); MCHC 33.8 g/dL (31.0-37.0); MCV 95.5 fL (80.0-100.0); MEAN PLATELET VOLUME 10.1 fL (7.4-10.4); MONOCYTES 8.9 % (2-11); NEUTROPHILS 67.8 % (40-80); PLATELET COUNT 296 10x3/uL (130-400); RBC 3.35 10x6/uL (4.00-5.40); RDW 13.9 % (11.5-14.5)
--- NOTE | 2019-02-04 06:05 | NUR ---
CHANGED ENTIRE BED LINEN. PT WAS WET WITH URINE. CLEANED PT. PT IN A GOOD MOOD THIS MORNING AND HAD NO PROBLEMS RECIEVING MORNING MEDS. CALL LIGHT IN REACH. DENIES NEEDS AT THIS TIME. BED ALARM ON. FALL PRECAUTIONS IN PLACE. TM
[2019-02-04 06:32] LABS: ANION GAP 8.8 mmol/L (8-16); BILIRUBIN - TOTAL 0.29 mg/dL (0.2-1.3); CALCIUM 8.4 mg/dL (8.5-10.1); CARBON DIOXIDE 31.7 mmol/L (21.0-32.0); CREATININE - SERUM 0.8 mg/dL (0.6-1.3); POTASSIUM - SERUM 3.5 mmol/L (3.5-5.1); PROTEIN - SERUM 6.2 g/dL (6.4-8.2)
--- NOTE | 2019-02-04 07:50 | NUR ---
ASSESSMENT COMPLETE. NO IV ACCESS. INCONT AT TIMES. STONE MAT IN USE. TREMORS TO BILAT HANDS NOTED. FAMILY AT BEDSIDE. DENIES ANY NEEDS AT THIS TIME.
[2019-02-04 08:39] VITALS: BP 208/105
[2019-02-04 12:29] VITALS: BP 148/94
[2019-02-04 16:35] VITALS: BP 177/93
--- NOTE | 2019-02-04 19:53 | NUR ---
PATIENT RESTING IN BED WITH NO S/S OF DISTRESS. BED IN LOWEST POSITION, CALL LIGHT WITHIN REACH, AND BED ALARM ON AND FUNCTIONING PROPERLY. PATIENT DENIES NEEDS AT THIS TIME. BED IN LOWEST POSITION AND CALL LIGHT WITHIN REACH. WILL CONTINUE TO MONITOR.
[2019-02-04 19:59] VITALS: BP 195/108
--- NOTE | 2019-02-04 20:10 | NUR ---
CLEANED PATIENT AND CHANGED LINENS AFTER INCONTINENT EPISODE. PATIENT DENIES OTHER NEEDS AT THIS TIME. BED IN LOWEST POSITION AND CALL LIGHT WITHIN REACH. ENCOURAGED PATIENT TO CALL IF SHE HAS NEEDS. WILL CONTINUE TO MONITOR.
[2019-02-05 00:22] VITALS: BP 114/78
[2019-02-05 04:00] VITALS: BP 191/104
[2019-02-05 06:59] LABS: BASOPHILS 0.1 % (0-2); EOSINOPHILS 1.8 % (0-7); HEMATOCRIT 33.7 % (36.0-48.0); HEMOGLOBIN 11.2 g/dL (12-16); IMMATURE GRANULOCYTES 0.1 % (0-5); LYMPHOCYTES 21.1 % (15-50); MCH 32.1 pg (26.0-34.0); MCHC 33.2 g/dL (31.0-37.0); MCV 96.6 fL (80.0-100.0); MONOCYTES 8.3 % (2-11); NEUTROPHILS 68.6 % (40-80); PLATELET COUNT 318 10x3/uL (130-400); RBC 3.49 10x6/uL (4.00-5.40); RDW 13.8 % (11.5-14.5); WBC 9.5 10x3/uL (4.8-10.8)
[2019-02-05 07:18] LABS: ALBUMIN 2.9 g/dL (3.4-5.0); ANION GAP 8.1 mmol/L (8-16); BILIRUBIN - TOTAL 0.38 mg/dL (0.2-1.3); CALCIUM 8.5 mg/dL (8.5-10.1); CARBON DIOXIDE 32.5 mmol/L (21.0-32.0); CREATININE - SERUM 0.8 mg/dL (0.6-1.3); MAGNESIUM - SERUM 2.1 mg/dL (1.8-2.4); POTASSIUM - SERUM 3.6 mmol/L (3.5-5.1); PROTEIN - SERUM 6.3 g/dL (6.4-8.2)
--- NOTE | 2019-02-05 07:25 | NUR ---
PT RESTING EYES CLOSED FAMILY AT BEDSIDE STATES "THE PT HAS BEEN SLEEP PRETTY MUCH ALL MORNING" NO SIGNS OF DISTRESS, CL IN REACH
[2019-02-05 08:30] VITALS: BP 181/99
--- NOTE | 2019-02-05 10:14 | NUR ---
PATIENT SLEEPING SITTING UP IN BED WITH FAMILY AT BEDSIDE. FAMILY STATES THAT SHE IS DOING OK. WILL CONTINUE TO MONITOR. CALL LIGHT WITHIN REACH.
[2019-02-05 11:30] VITALS: BP 156/67
[2019-02-05 16:26] VITALS: BP 126/76
--- NOTE | 2019-02-05 21:22 | NUR ---
NIGHT TIME MEDICATIONS GIVEN AT THIS TIME. PT HAD NO TROUBLE SWALLOWING PILLS. A/O X2, RESP EVEN AND NONLABORED ON RA. NO IV ACCESS NOTED, PT DENIES ANY NEEDS AT THIS TIME. CALL LIGHT IN REACH, BEDSIDE RAILS X3, STONE ALARM ON, NAD NOTED, WILL CONTINUE PLAN OF CARE.
[2019-02-05 21:31] VITALS: BP 184/82
--- NOTE | 2019-02-05 23:45 | NUR ---
PT RESTING COMFORTABLY IN BED, WITH EYES CLOSED, NAD NOTED, CALL LIGHT IN REACH, BEDSIDE RAILS X3, STONE ALARM ON, WILL CONTINUE TO MONITOR.
[2019-02-06 00:19] VITALS: BP 149/79
--- NOTE | 2019-02-06 03:06 | NUR ---
PT RESTING COMFORTABLY IN BED WITH EYES CLOSED, NO CHANGES FROM PREVIOUS ASSESSMENT.
[2019-02-06 04:30] VITALS: BP 114/66
--- NOTE | 2019-02-06 06:06 | NUR ---
CLEANED PT FROM INCONT CARE AND REPOSITIONED HER IN BED. PT DENIES ANY NEEDS AT THIS TIME. CALL LIGHT IN REACH, BEDSIDE RAILS X3, STONE ALARM ON, NAD NOTED.
[2019-02-06 07:09] LABS: ANION GAP 13.8 mmol/L (8-16); BILIRUBIN - TOTAL 0.38 mg/dL (0.2-1.3); CALCIUM 8.4 mg/dL (8.5-10.1); CARBON DIOXIDE 29.3 mmol/L (21.0-32.0); CREATININE - SERUM 0.8 mg/dL (0.6-1.3); MAGNESIUM - SERUM 2.2 mg/dL (1.8-2.4); POTASSIUM - SERUM 4.1 mmol/L (3.5-5.1); PROTEIN - SERUM 6.1 g/dL (6.4-8.2)
[2019-02-06 07:30] VITALS: BP 184/93
[2019-02-06 07:41] LABS: BASOPHILS 0.1 % (0-2); EOSINOPHILS 3.6 % (0-7); HEMATOCRIT 35.9 % (36.0-48.0); IMMATURE GRANULOCYTES 0.1 % (0-5); LYMPHOCYTES 28.1 % (15-50); MCH 31.8 pg (26.0-34.0); MCHC 33.4 g/dL (31.0-37.0); MCV 95.2 fL (80.0-100.0); MEAN PLATELET VOLUME 10.6 fL (7.4-10.4); MONOCYTES 7.6 % (2-11); NEUTROPHILS 60.5 % (40-80); PLATELET COUNT 325 10x3/uL (130-400); RBC 3.77 10x6/uL (4.00-5.40); RDW 13.6 % (11.5-14.5); WBC 9.2 10x3/uL (4.8-10.8)
[2019-02-06 13:02] VITALS: BP 163/52
--- NOTE | 2019-02-06 15:05 | NUR ---
Nutrition Follow Up: Regular mechanical soft diet with Boost ordered on all trays Spoke with heather who reports pt is eating much better than when admitted but still not optimally, Pt is drinking 3 Boost per day. Family reports no nutritional needs or requests at this time Foods are being prepared in a way that is tolerated well per family RD following
[2019-02-06 16:56] VITALS: BP 174/141
--- NOTE | 2019-02-06 18:30 | NUR ---
CONFUSED. FAMILY LEFT ROOM. BEGINS CLIMBING OUT OF BED. CALL . RENITA ORDERED 10mg IM [id number]. PO CLONIDINE ADMINISTERED FOR ELEVATED BP.
[2019-02-06 20:35] VITALS: BP 148/78
[2019-02-07 01:39] VITALS: BP 154/71
[2019-02-07 05:59] VITALS: BP 146/98
[2019-02-07 06:13] LABS: BASOPHILS 0.1 % (0-2); EOSINOPHILS 1.5 % (0-7); HEMATOCRIT 34.8 % (36.0-48.0); HEMOGLOBIN 11.5 g/dL (12-16); IMMATURE GRANULOCYTES 0.1 % (0-5); LYMPHOCYTES 19.3 % (15-50); MCH 32.1 pg (26.0-34.0); MEAN PLATELET VOLUME 10.1 fL (7.4-10.4); PLATELET COUNT 362 10x3/uL (130-400); RBC 3.58 10x6/uL (4.00-5.40); RDW 13.5 % (11.5-14.5); WBC 9.2 10x3/uL (4.8-10.8)
[2019-02-07 06:27] LABS: ALBUMIN 3.1 g/dL (3.4-5.0); ANION GAP 13.3 mmol/L (8-16); BILIRUBIN - TOTAL 0.36 mg/dL (0.2-1.3); CALCIUM 8.9 mg/dL (8.5-10.1); CARBON DIOXIDE 28.9 mmol/L (21.0-32.0); CREATININE - SERUM 0.9 mg/dL (0.6-1.3); MAGNESIUM - SERUM 2.5 mg/dL (1.8-2.4); POTASSIUM - SERUM 4.2 mmol/L (3.5-5.1); PROTEIN - SERUM 6.8 g/dL (6.4-8.2)
[2019-02-07 06:56] LABS: MCV 97.2 fL (80.0-100.0)
[2019-02-07 07:58] VITALS: BP 190/104
--- NOTE | 2019-02-07 07:58 | NUR ---
PT IS RESTING IN BED WITH EYES OPEN. RESPIRATIONS ARE EVEN AND UNLABORED. FAMILY IS AT BEDSIDE ASSISTING WITH MEAL TRAY. PT IS AAO X 4. STONE ALARM IS ON AND WORKING. BED IS IN THE LOWEST POSITION. CALL LIGHT AND BED SIDE TABLE ARE WITHIN REACH. SIDE RAILS X 2. PT AND PT FAMILY MEMBER DENY FURTHER NEEDS AT THIS TIME. WILL CONT TO MONITOR.
--- NOTE | 2019-02-07 08:00 | NUR ---
PT REPOSITIONED TO BACK. PT EDUCATED ON IMPORTANCE OF REPOSITIONING. PT VERBALIZES UNDERSTANDING.
--- NOTE | 2019-02-07 10:00 | NUR ---
PT REPOSITIONED TO RIGHT SIDE WITH PILLOWS USED FOR SUPPORT.
--- NOTE | 2019-02-07 11:39 | MORECARE ---
CASE MANAGEMENT DISCHARGE SUMMARY PATIENT: SP GUAMAN UNIT: [id number] ADM DATE: 02/01/19 AGE: 84 : 35 SEX: F ROOM/BED: D.1210 AUTHOR: ANNAMARIA MA PHYSICIAN: REFERRING PHYSICIAN: IDALIA SHABAZZ MD DATE OF SERVICE: 02/07/19 Discharge Plan Patient Name: SP GUAMAN Facility: [facility]:[place] : 1935 Planned Disposition: Mcfp Facility Anticipated Discharge Date: 02/06/19 Discharge Date: Expected LOS: 5 Initial Reviewer: [id number] Initial Review Date: 02/03/2019 Generated: 02/07/19 12:39 pm Comments DCP- Discharge Planning Updated by [id number]: Tammy Tobias on 02/03/19 1:[address] Patient Name: SP GUAMAN Admission Status: ER Accout number: [id number] Admission Date: 02-01-2019 : 1935 Admission Diagnosis: Attending: IDALIA GASPAR Current LOS: 2 Anticipated DC Date: 02-06-2019 Planned Disposition: Mcfp Facility Primary Insurance: MEDICARE A & B Discharge Planning Comments: CM MET WITH PATIENT'S POALEEANNE. THE FAMILY STATES THEY WANT HER TO GO TO [facility] FOR SNF, ELENA SIGNED. CM CONTACTED NATE AND DOCUMENTS SENT FOR SNF, STATES WOULD BE WEDNESDAY BEFORE THEY CAN TAKE HER IF INSURANCE APPROVES. CM WILL SEND UPDATED CLINICAL NEEDED . CM TO FOLLOW AND ASSIST NEEDED WITH DC PLANNING/NEEDS. SEND OT AND PT NOTES WHEN AVAILABLE. THANK YOU Outside Energy Sales Representatives: Tammy Tobias Coverage Notice Reviewer: [id number] - Tammy Tobias Notice Issued Date-Time: 02/03/2019 14:11 Notice Type: Patient Choice Letter Notice Delivered To: Other Relationship to Patient: Power of Polymer Specialist Claims Account Manager Name: LEEANNE CHI Delivery Method: HAND - Hand Delivered Heather Days: Prior Verbal Notification: Recipient Understood Notice: Yes Recipient Signature: Yes Med Rec Note Co-signed by Attending: Coverage Notice Comment: ELENA FOR [facility]. Last DP export: 02/03/19 2:54 pm Patient Name: SP GUAMAN Page 15255 at 1139 All edits/amendments must be made on the electronic document DICTATION DATE: 02/07/191138 WOODEN TANK ERECTOR: HELEN 02/07/19 113 RPT#: [id number] DC DATE: STATUS: ADM IN [facility] [address] [place] [address] END OF REPORT
[2019-02-07 11:52] VITALS: BP 136/89
--- NOTE | 2019-02-07 12:00 | NUR ---
PT REPOSITIONED TO LEFT SIDE WITH PILLOWS PLACED FOR SUPPORT.
--- NOTE | 2019-02-07 14:00 | NUR ---
PT REPOSITIONED TO BACK. PT DENIES FURTHER NEEDS AT THIS TIME. WILL CONT TO MONITOR.
--- NOTE | 2019-02-07 16:00 | NUR ---
PT REPOSITIONED TO RIGHT SIDE. PILLOWS USED FOR SUPPORT. PT DENIES FURTHER NEEDS. WILL CONT TO MONITOR.
[2019-02-07 16:38] VITALS: BP 185/86
--- NOTE | 2019-02-07 17:04 | MORECARE ---
CASE MANAGEMENT DISCHARGE SUMMARY PATIENT: SP GUAMAN UNIT: [id number] ADM DATE: 02/01/19 AGE: 84 : 35 SEX: F ROOM/BED: D.1210 AUTHOR: ANNAMARIA MA PHYSICIAN: REFERRING PHYSICIAN: IDALIA SHABAZZ MD DATE OF SERVICE: 02/07/19 Discharge Plan Patient Name: SP GUAMAN Facility: [facility]:[place] : 1935 Planned Disposition: Care Home Facility Anticipated Discharge Date: 02/06/19 Discharge Date: Expected LOS: 5 Initial Reviewer: [id number] Initial Review Date: 02/03/2019 Generated: 02/07/19 6:03 pm Comments DCP- Discharge Planning Updated by [id number]: Tammy Tobias on 02/07/19 3:[address] Patient Name: SP GUAMAN Admission Status: ER Accout number: [id number] Admission Date: 02-01-2019 : 1935 Admission Diagnosis:ALTERED MENTAL STATUS, UNSPECIFIED Attending: IDALIA GASPAR Current LOS: 6 Anticipated DC Date: 02-06-2019 Planned Disposition: Care Home Facility Primary Insurance: MEDICARE A & B Discharge Planning Comments: DONTAE RECEIVED AND FAXED TO [facility]. CM WILL FOLLOW UP WITH NURSING FACILITY TOMORROW. [employer] Paralegal: Tammy Tobias DCP- Discharge Planning Updated by [id number]: Tammy Tobias on 02/03/19 1:[address] Patient Name: SP GUAMAN Admission Status: ER Accout number: [id number] Admission Date: 02-01-2019 : 1935 Admission Diagnosis: Attending: IDALIA GASPAR Current LOS: 2 Anticipated DC Date: 02-06-2019 Planned Disposition: Care Home Facility Primary Insurance: MEDICARE A & B Discharge Planning Comments: CM MET WITH PATIENT'S POA, LEEANNE CHI. THE FAMILY STATES THEY WANT HER TO GO TO [facility] FOR SNF, ELENA SIGNED. CM CONTACTED NATE AND DOCUMENTS SENT FOR SNF, STATES WOULD BE WEDNESDAY BEFORE THEY CAN TAKE HER IF INSURANCE APPROVES. CM WILL SEND UPDATED CLINICAL NEEDED . CM TO FOLLOW AND ASSIST NEEDED WITH DC PLANNING/NEEDS. SEND OT AND PT NOTES WHEN AVAILABLE. THANK YOU [employer] Paralegal: Tammy Micheline Coverage Notice Reviewer: [id number] - Tammy Micheline Notice Issued Date-Time: 02/03/2019 14:11 Notice Type: Patient Choice Letter Notice Delivered To: Other Relationship to Patient: Power of Cardiology Technologist Education Administrative Assistant Name: LEEANNE CHI Delivery Method: HAND - Hand Delivered Heather Days: Prior Verbal Notification: Recipient Understood Notice: Yes Recipient Signature: Yes Med Rec Note Co-signed by Attending: Coverage Notice Comment: ELENA FOR [facility]. Last DP export: 02/07/19 10:39 am Patient Name: SP GUAMAN Page 21494 at 1704 All edits/amendments must be made on the electronic document DICTATION DATE: 02/07/191702 REHAB THERAPY MANAGER: HELEN 02/07/191702 RPT#: [id number] DC DATE: STATUS: ADM IN [facility] [address] [place] [address] END OF REPORT
--- NOTE | 2019-02-07 17:20 | NUR ---
PT GRAND DAUGHTER REPORTS PERIODS OF ANXIETY AND AGGRESSION DURING SHIFT. PT GRANDDAUGHTER IS CONCERNED WITH PT STATE OF MIND AT THIS TIME AND REQUESTS GEODON TO BE ADMINISTERED. PT IS AAO X 4 AND IS SHOWING SIGNS OF AGGRESSION AND ANXIETY. WILL ADMINISTERED PER ORDER. SEE EMAR.
--- NOTE | 2019-02-07 18:00 | NUR ---
PT REPOSITIONED TO BACK. BED IS IN THE LOWEST POSITION. CALL LIGHT AND BEDSIDE TABLE ARE WITHIN REACH. SIDE RAILS X2. STONE ALARM IS ON AND WORKING. PT DENIES FURTHER NEEDS AT THIS TIME. WILL CONT TO MONITOR.
[2019-02-08 05:13] LABS: BASOPHILS 0.1 % (0-2); EOSINOPHILS 0.3 % (0-7); HEMATOCRIT 31.7 % (36.0-48.0); HEMOGLOBIN 10.6 g/dL (12-16); IMMATURE GRANULOCYTES 0.3 % (0-5); LYMPHOCYTES 12.6 % (15-50); MCHC 33.4 g/dL (31.0-37.0); MCV 95.8 fL (80.0-100.0); MONOCYTES 5.7 % (2-11); PLATELET COUNT 338 10x3/uL (130-400); RBC 3.31 10x6/uL (4.00-5.40); RDW 13.5 % (11.5-14.5); WBC 9.1 10x3/uL (4.8-10.8)
[2019-02-08 05:39] LABS: ANION GAP 13.9 mmol/L (8-16); CALCIUM 8.4 mg/dL (8.5-10.1); CARBON DIOXIDE 26.4 mmol/L (21.0-32.0); CREATININE - SERUM 0.8 mg/dL (0.6-1.3); POTASSIUM - SERUM 4.3 mmol/L (3.5-5.1)
--- NOTE | 2019-02-08 07:20 | NUR ---
INITIAL ROUNDING ON THE PATIENT, SHE IS ALONE IN THE ROOM, DOOR IS OPEN, BED ALARM ON AND AUDIABLE. CALL LIGHT IN REACH. PATIENT IS WET WITH URINE, BED AND PADS ARE WET.
--- NOTE | 2019-02-08 07:35 | NUR ---
WITH THE ASSISTANCE FROM RECEPTION SPECIALIST FROM UPSTAIRS, THE PATIENT WAS BATHED, LINENS CHANGED.
[2019-02-08 08:00] VITALS: BP 169/79
[2019-02-08 12:00] VITALS: BP 152/80
--- NOTE | 2019-02-08 14:48 | MORECARE ---
CASE MANAGEMENT DISCHARGE SUMMARY PATIENT: SP GUAMAN UNIT: [id number] ADM DATE: 02/01/19 AGE: 84 : 35 SEX: F ROOM/BED: D.1210 AUTHOR: ANNAMARIA MA PHYSICIAN: REFERRING PHYSICIAN: IDALIA SHABAZZ MD DATE OF SERVICE: 02/08/19 Discharge Plan Patient Name: SP GUAMAN Facility: [facility]:[place] : 1935 Planned Disposition: Shelter Facility Anticipated Discharge Date: 02/06/19 Discharge Date: Expected LOS: 5 Initial Reviewer: [id number] Initial Review Date: 02/03/2019 Generated: 02/08/19 3:48 pm Comments DCP- Discharge Planning Updated by [email or web address]: Tammy Tobias on 02/08/19 1:[address] Patient Name: SP GUAMAN Admission Status: ER Accout number: [id number] Admission Date: 02-01-2019 : 1935 Admission Diagnosis:ALTERED MENTAL STATUS, UNSPECIFIED Attending: IDALIA GASPAR Current LOS: 7 Anticipated DC Date: 02-06-2019 Planned Disposition: Shelter Facility Primary Insurance: MEDICARE A & B Discharge Planning Comments: CM SPOKE WITH NATE [phone] AT [facility] AND THEY WILL ACCEPT PATIENT. THEY DO NOT ACCEPT PATIENTS AFTER 2PM. CALL NATE WHEN POSSIBLE DISCHARGE AND SHE WILL ARRANGE [id number]. CM TO FOLLOW AND ASSIST WITH DC PLANNING/NEEDS. Classroom Paraprofessional: Tammy Tobias DCP- Discharge Planning Updated by [id number]: Tammy Tobias on 02/07/19 3:[address] Patient Name: SP GUAMAN Admission Status: ER Accout number: [id number] Admission Date: 02-01-2019 : 1935 Admission Diagnosis:ALTERED MENTAL STATUS, UNSPECIFIED Attending: IDALIA GASPAR Current LOS: 6 Anticipated DC Date: 02-06-2019 Planned Disposition: Shelter Facility Primary Insurance: MEDICARE A & B Discharge Planning Comments: DONTAE RECEIVED AND FAXED TO [facility]. CM WILL FOLLOW UP WITH NURSING FACILITY TOMORROW. Classroom Paraprofessional: Tammy Tobias DCP- Discharge Planning Updated by [id number]: Tammy Tobias on 02/03/19 1:[address] Patient Name: SP GUAMAN Admission Status: ER Accout number: [id number] Admission Date: 02-01-2019 : 1935 Admission Diagnosis: Attending: IDALIA GASPAR Current LOS: 2 Anticipated DC Date: 02-06-2019 Planned Disposition: Shelter Facility Primary Insurance: MEDICARE A & B Discharge Planning Comments: CM MET WITH PATIENT'S POA, LEEANNE CHI. THE FAMILY STATES THEY WANT HER TO GO TO [facility] FOR SNF, ELENA SIGNED. CM CONTACTED NATE AND DOCUMENTS SENT FOR SNF, STATES WOULD BE WEDNESDAY BEFORE THEY CAN TAKE HER IF INSURANCE APPROVES. CM WILL SEND UPDATED CLINICAL NEEDED . CM TO FOLLOW AND ASSIST NEEDED WITH DC PLANNING/NEEDS. SEND OT AND PT NOTES WHEN AVAILABLE. THANK YOU Classroom Paraprofessional: Tammy Tobias Coverage Notice Reviewer: [id number] - Tammy Tobias Notice Issued Date-Time: 02/03/2019 14:11 Notice Type: Patient Choice Letter Notice Delivered To: Other Relationship to Patient: Power of Syruper Operations Team Leader Name: LEEANNE CHI Delivery Method: HAND - Hand Delivered Heather Days: Prior Verbal Notification: Recipient Understood Notice: Yes Recipient Signature: Yes Med Rec Note Co-signed by Attending: Coverage Notice Comment: ELENA FOR [facility]. Last DP export: 02/07/19 4:03 pm Patient Name: SP GUAMAN Page [phone] at 1448 All edits/amendments must be made on the electronic document DICTATION DATE: 02/08/198 ELECTRICAL AUTOMATION ENGINEER: HELEN 02/08/19 1448 RPT#: [id number] DC DATE: STATUS: ADM IN [facility] [address] [place] [address] END OF REPORT
--- NOTE | 2019-02-08 15:38 | NUR ---
OT NOTE: PT COMPLETED BED MOB WITH MIN/MOD A. PT COMPLETED SIT TO STAND WITH MIN/CGA. PT COMPLETED BUE AROM AXS. THANK YOU, DRE DE LA TORRE
--- NOTE | 2019-02-08 15:48 | NUR ---
OT NOTE: MIN ASSIST WITH BED MOB; MIN ASSIST WITH SIT TO STAND; MIN ASSIST WITH WALKER FOR IN ROOM AMBULATION. FAMILY REPORTS THAT PT SAT UP IN CHAIR FOR GREATER THAN AN HOUR TODAY. AMB INTO HALLWAY TO IMPROVE FUNCTIONAL ENDURANCE. PT DOING VERY WELL. OBI WATSON, OTR/L
[2019-02-09 06:38] LABS: BASOPHILS 0 % (0-2); EOSINOPHILS 0.7 % (0-7); HEMATOCRIT 33.5 % (36.0-48.0); IMMATURE GRANULOCYTES 0.1 % (0-5); MCH 31.6 pg (26.0-34.0); MCHC 32.8 g/dL (31.0-37.0); MCV 96.3 fL (80.0-100.0); MONOCYTES 6.5 % (2-11); NEUTROPHILS 71.7 % (40-80); PLATELET COUNT 376 10x3/uL (130-400); RBC 3.48 10x6/uL (4.00-5.40); RDW 13.8 % (11.5-14.5); WBC 10.2 10x3/uL (4.8-10.8)
[2019-02-09 06:51] LABS: ANION GAP 12.6 mmol/L (8-16); CALCIUM 8.7 mg/dL (8.5-10.1); CARBON DIOXIDE 29.1 mmol/L (21.0-32.0); POTASSIUM - SERUM 4.7 mmol/L (3.5-5.1)
--- NOTE | 2019-02-09 07:00 | NUR ---
INITIAL ROUNDING, PATIENT IS IN BED, SUPINE, EYES CLOSED, LIGHTS OFF, DOOR OPEN AND 3 SIDE RAILS UP. STONE ALARM ON, CALL LIGHT IN [facility]. NO SOB NOTED, ON ROOM AIR.
[2019-02-09] MEDS ORDERED: LEVOFLOXACIN500 MG PO (08:01)
[2019-02-09] MEDS ORDERED: LISINOPRIL10 MG PO (08:01)
--- NOTE | 2019-02-09 08:21 | NUR ---
CALLED REPORT TO BARTOLO CHRISTOPHER AT [facility]. EMERY, WHOLESALE REPRESENTATIVE , SHE IS REQUESTING STAFF TO TAKE THE PATIENT OUT TO THE BUS FOR TRANSPORT, IN A WHEEL CHAIR. THE PLACING JUDGE WILL CALL WHEN HE GETS BACK HERE.
--- NOTE | 2019-02-09 10:50 | MORECARE ---
CASE MANAGEMENT DISCHARGE SUMMARY PATIENT: SP GUAMAN UNIT: [id number] ADM DATE: 02/01/19 AGE: 84 : 35 SEX: F ROOM/BED: D.1210 AUTHOR: ANNAMARIA MA PHYSICIAN: REFERRING PHYSICIAN: IDALIA SHABAZZ MD DATE OF SERVICE: 02/09/19 Discharge Plan Patient Name: SP GUAMAN Facility: [facility]:[place] : 1935 Planned Disposition: Jail Facility Anticipated Discharge Date: 02/06/19 Discharge Date: Expected LOS: 5 Initial Reviewer: [id number] Initial Review Date: 02/03/2019 Generated: 02/09/19 11:50 am Comments DCP- Discharge Planning Updated by [email or web address]: Tammy Tobias on 02/08/19 1:[address] Patient Name: SP GUAMAN Admission Status: ER Accout number: [id number] Admission Date: 02-01-2019 : 1935 Admission Diagnosis:ALTERED MENTAL STATUS, UNSPECIFIED Attending: IDALIA GASPAR Current LOS: 7 Anticipated DC Date: 02-06-2019 Planned Disposition: Jail Facility Primary Insurance: MEDICARE A & B Discharge Planning Comments: CM SPOKE WITH NATE [phone] AT [facility] AND THEY WILL ACCEPT PATIENT. THEY DO NOT ACCEPT PATIENTS AFTER 2PM. CALL NATE WHEN POSSIBLE DISCHARGE AND SHE WILL ARRANGE [id number]. CM TO FOLLOW AND ASSIST WITH DC PLANNING/NEEDS. Branch Office Manager: Tammy Tobias DCP- Discharge Planning Updated by [id number]: Tammy Tobias on 02/07/19 3:[address] Patient Name: SP GUAMAN Admission Status: ER Accout number: [id number] Admission Date: 02-01-2019 : 1935 Admission Diagnosis:ALTERED MENTAL STATUS, UNSPECIFIED Attending: IDALIA GASPAR Current LOS: 6 Anticipated DC Date: 02-06-2019 Planned Disposition: Jail Facility Primary Insurance: MEDICARE A & B Discharge Planning Comments: DONTAE RECEIVED AND FAXED TO [facility]. CM WILL FOLLOW UP WITH NURSING FACILITY TOMORROW. Branch Office Manager: Tammy Tobias DCP- Discharge Planning Updated by [id number]: Tammy Tobias on 02/03/19 1:[address] Patient Name: SP GUAMAN Admission Status: ER Accout number: [id number] Admission Date: 02-01-2019 : 1935 Admission Diagnosis: Attending: IDALIA GASPAR Current LOS: 2 Anticipated DC Date: 02-06-2019 Planned Disposition: Jail Facility Primary Insurance: MEDICARE A & B Discharge Planning Comments: CM MET WITH PATIENT'S POALEEANNE. THE FAMILY STATES THEY WANT HER TO GO TO [facility] FOR SNF, ELENA SIGNED. CM CONTACTED NATE AND DOCUMENTS SENT FOR SNF, STATES WOULD BE WEDNESDAY BEFORE THEY CAN TAKE HER IF INSURANCE APPROVES. CM WILL SEND UPDATED CLINICAL NEEDED . CM TO FOLLOW AND ASSIST NEEDED WITH DC PLANNING/NEEDS. SEND OT AND PT NOTES WHEN AVAILABLE. THANK YOU Branch Office Manager: Tammy Tobias Coverage Notice Reviewer: [id number] Slim Tobias Notice Issued Date-Time: 02/03/2019 14:11 Notice Type: Patient Choice Letter Notice Delivered To: Other Relationship to Patient: Power of Roll Hand Data Input Clerk Name: LEEANNE CHI Delivery Method: HAND - Hand Delivered Heather Days: Prior Verbal Notification: Recipient Understood Notice: Yes Recipient Signature: Yes Med Rec Note Co-signed by Attending: Coverage Notice Comment: ELENA FOR [facility]. Reviewer: [id number] Slim Tobias Notice Issued Date-Time: 02/08/2019 16:32 Notice Type: IM Discharge Notice Notice Delivered To: Family Member Relationship to Patient: Power of Roll Hand Data Input Clerk Name: LEEANNE CHI Delivery Method: PHONE - Phone Heather Days: Prior Verbal Notification: Yes Recipient Understood Notice: Yes Recipient Signature: Med Rec Note Co-signed by Attending: Coverage Notice Comment: Last DP export: 02/08/19 1:48 pm Patient Name: SP GUAMAN Page [phone] at 1050 All edits/amendments must be made on the electronic document DICTATION DATE: 02/09/19 1049 PATIENT COMPANION: HELEN 02/09/19 1049 RPT#: [id number] DC DATE: STATUS: ADM IN [facility] [address] [place] [address] END OF REPORT
--- NOTE | 2019-02-09 11:10 | MORECARE ---
CASE MANAGEMENT DISCHARGE SUMMARY PATIENT: SP GUAMAN UNIT: [id number] ADM DATE: 02/01/19 AGE: 84 : 35 SEX: F ROOM/BED: D.1210 AUTHOR: ANNAMARIA MA PHYSICIAN: REFERRING PHYSICIAN: IDALIA SHABAZZ MD DATE OF SERVICE: 02/09/19 Discharge Plan Patient Name: SP GUAMAN Facility: [facility]:[place] : 1935 Planned Disposition: Alf Facility Anticipated Discharge Date: 02/06/19 Discharge Date: 02/09/2019 Expected LOS: 5 Initial Reviewer: [id number] Initial Review Date: 02/03/2019 Generated: 02/09/19 12:10 pm Comments DCP- Discharge Planning Updated by [id number]: Olga Guzmán on 02/09/19 10:[address] LATE ENTRY 0915 CM SPOKE WITH RADHA AT [facility]. PLAN FOR PATIENT TO BE DISCHARGED TO FACILITY TODAY. SHE HAS ARRANGED FOR THE VAN TO PROVIDE ESCORT BETWEEN 1000- 1030. SHE HAS SPOKEN WITH THE PRIMARY NURSE. THE GRANDDAUGHTER WILL BE IN TO FACILITY TO COMPLETE THE ADMISSION PAPERWORK THIS AM. 1010 Patient discharged to [facility] via their van. CM faxed MD discharge summary, medication discharge list and MD discharge instructions to [phone]. phone number [phone]. Patient had been on service with [facility] prior to hospital admission. CM advised [facility] of patient's discharge to facility. Phone number [phone]. DCP- Discharge Planning Updated by [id number]: Tammy Tobias on 02/08/19 1:[address] Patient Name: SP GUAMAN Admission Status: ER Accout number: [id number] Admission Date: 02-01-2019 : 1935 Admission Diagnosis:ALTERED MENTAL STATUS, UNSPECIFIED Attending: IDALIA GASPAR Current LOS: 7 Anticipated DC Date: 02-06-2019 Planned Disposition: Alf Facility Primary Insurance: MEDICARE A & B Discharge Planning Comments: VANNA SPOKE WITH NATE [phone] AT [facility] AND THEY WILL ACCEPT PATIENT. THEY DO NOT ACCEPT PATIENTS AFTER 2PM. CALL NATE WHEN POSSIBLE DISCHARGE AND SHE WILL ARRANGE [id number]. CM TO FOLLOW AND ASSIST WITH DC PLANNING/NEEDS. Sausage Wrapper: Tammy Tobias DCP- Discharge Planning Updated by [id number]: Tammy Tobias on 02/07/19 3:[address] Patient Name: SP GUAMAN Admission Status: ER Accout number: [id number] Admission Date: 02-01-2019 : 1935 Admission Diagnosis:ALTERED MENTAL STATUS, UNSPECIFIED Attending: IDALIA GASPAR Current LOS: 6 Anticipated DC Date: 02-06-2019 Planned Disposition: Alf Facility Primary Insurance: MEDICARE A & B Discharge Planning Comments: DONTAE RECEIVED AND FAXED TO [facility]. CM WILL FOLLOW UP WITH NURSING FACILITY TOMORROW. Sausage Wrapper: Tammy Tobias DCP- Discharge Planning Updated by [id number]: Tammy Tobias on 02/03/19 1:[address] Patient Name: SP GUAMAN Admission Status: ER Accout number: [id number] Admission Date: 02-01-2019 : 1935 Admission Diagnosis: Attending: IDALIA GASPAR Current LOS: 2 Anticipated DC Date: 02-06-2019 Planned Disposition: Alf Facility Primary Insurance: MEDICARE A & B Discharge Planning Comments: CM MET WITH PATIENT'S POA, LEEANNE CHI. THE FAMILY STATES THEY WANT HER TO GO TO [facility] FOR SNF, ELENA SIGNED. CM CONTACTED NATE AND DOCUMENTS SENT FOR SNF, STATES WOULD BE WEDNESDAY BEFORE THEY CAN TAKE HER IF INSURANCE APPROVES. CM WILL SEND UPDATED CLINICAL NEEDED . CM TO FOLLOW AND ASSIST NEEDED WITH DC PLANNING/NEEDS. SEND OT AND PT NOTES WHEN AVAILABLE. THANK YOU Sausage Wrapper: Tammy Tobias Coverage Notice Reviewer: [id number] Slim Tobias Notice Issued Date-Time: 02/03/2019 14:11 Notice Type: Patient Choice Letter Notice Delivered To: Other Relationship to Patient: Power of Infectious Waste Technician Ethical Hacker Name: LEEANNE CHI Delivery Method: HAND - Hand Delivered Heather Days: Prior Verbal Notification: Recipient Understood Notice: Yes Recipient Signature: Yes Med Rec Note Co-signed by Attending: Coverage Notice Comment: ELENA FOR [facility]. Reviewer: [id number] Slim Tobias Notice Issued Date-Time: 02/08/2019 16:32 Notice Type: IM Discharge Notice Notice Delivered To: Family Member Relationship to Patient: Power of Infectious Waste Technician Ethical Hacker Name: LEEANNE CHI Delivery Method: PHONE - Phone Heather Days: Prior Verbal Notification: Yes Recipient Understood Notice: Yes Recipient Signature: Med Rec Note Co-signed by Attending: Coverage Notice Comment: Last DP export: 02/09/19 9:50 am Patient Name: SP GUAMAN Page 36365 at 1110 All edits/amendments must be made on the electronic document DICTATION DATE: 02/09/19 110 CAR REPOSSESSOR: HELEN 02/09/19 110 RPT#: [id number] DC DATE:02/09/19 STATUS: DIS IN [facility] [address] [place] [address] END OF REPORT
--- NOTE | 2019-02-10 08:26 | MORECARE ---
CASE MANAGEMENT DISCHARGE SUMMARY PATIENT: SP GUAMAN UNIT: [id number] ADM DATE: 02/01/19 AGE: 84 : 35 SEX: F ROOM/BED: D.1210 AUTHOR: ANNAMARIA MA PHYSICIAN: REFERRING PHYSICIAN: IDALIA SHABAZZ MD DATE OF SERVICE: 02/10/19 Discharge Plan Patient Name: SP GUAMAN Facility: [facility]:[place] : 1935 Planned Disposition: Detention Facility Anticipated Discharge Date: 02/06/19 Discharge Date: 02/09/2019 Expected LOS: 5 Initial Reviewer: [id number] Initial Review Date: 02/03/2019 Generated: 02/10/19 9:26 am Comments DCP- Discharge Planning Updated by [id number]: Olga Guzmán on 02/09/19 10:[address] LATE ENTRY 0915 VANNA SPOKE WITH RADHA AT [facility]. PLAN FOR PATIENT TO BE DISCHARGED TO FACILITY TODAY. SHE HAS ARRANGED FOR THE VAN TO PROVIDE ESCORT BETWEEN 1000- 1030. SHE HAS SPOKEN WITH THE PRIMARY NURSE. THE GRANDDAUGHTER WILL BE IN TO FACILITY TO COMPLETE THE ADMISSION PAPERWORK THIS AM. 1010 Patient discharged to [facility] via their van. CM faxed MD discharge summary, medication discharge list and MD discharge instructions to [phone]. phone number [phone]. Patient had been on service with [facility] prior to hospital admission. CM advised [facility] of patient's discharge to facility. Phone number [phone]. DCP- Discharge Planning Updated by [id number]: Tammy Tobias on 02/08/19 1:[address] Patient Name: SP GUAMAN Admission Status: ER Accout number: [id number] Admission Date: 02-01-2019 : 1935 Admission Diagnosis:ALTERED MENTAL STATUS, UNSPECIFIED Attending: IDALIA GASPAR Current LOS: 7 Anticipated DC Date: 02-06-2019 Planned Disposition: Detention Facility Primary Insurance: MEDICARE A & B Discharge Planning Comments: VANNA SPOKE WITH NATE [phone] AT [facility] AND THEY WILL ACCEPT PATIENT. THEY DO NOT ACCEPT PATIENTS AFTER 2PM. CALL NATE WHEN POSSIBLE DISCHARGE AND SHE WILL ARRANGE [id number]. CM TO FOLLOW AND ASSIST WITH DC PLANNING/NEEDS. Site Safety Coordinator: Tammy Tobias DCP- Discharge Planning Updated by [id number]: Tammy Tobias on 02/07/19 3:[address] Patient Name: SP GUAMAN Admission Status: ER Accout number: [id number] Admission Date: 02-01-2019 : 1935 Admission Diagnosis:ALTERED MENTAL STATUS, UNSPECIFIED Attending: IDALIA GASPAR Current LOS: 6 Anticipated DC Date: 02-06-2019 Planned Disposition: Detention Facility Primary Insurance: MEDICARE A & B Discharge Planning Comments: DONTAE RECEIVED AND FAXED TO [facility]. CM WILL FOLLOW UP WITH NURSING FACILITY TOMORROW. Site Safety Coordinator: Tammy Tobias DCP- Discharge Planning Updated by [id number]: Tammy Tobias on 02/03/19 1:[address] Patient Name: SP GUAMAN Admission Status: ER Accout number: [id number] Admission Date: 02-01-2019 : 1935 Admission Diagnosis: Attending: IDALIA GASPAR Current LOS: 2 Anticipated DC Date: 02-06-2019 Planned Disposition: Detention Facility Primary Insurance: MEDICARE A & B Discharge Planning Comments: CM MET WITH PATIENT'S POA, LEEANNE CHI. THE FAMILY STATES THEY WANT HER TO GO TO [facility] FOR SNF, ELENA SIGNED. CM CONTACTED NATE AND DOCUMENTS SENT FOR SNF, STATES WOULD BE WEDNESDAY BEFORE THEY CAN TAKE HER IF INSURANCE APPROVES. CM WILL SEND UPDATED CLINICAL NEEDED . CM TO FOLLOW AND ASSIST NEEDED WITH DC PLANNING/NEEDS. SEND OT AND PT NOTES WHEN AVAILABLE. THANK YOU Site Safety Coordinator: Tammy Tobias Coverage Notice Reviewer: [id number] Slim Tobias Notice Issued Date-Time: 02/03/2019 14:11 Notice Type: Patient Choice Letter Notice Delivered To: Other Relationship to Patient: Power of Last Pattern Grader Creative Guru Name: LEEANNE CHI Delivery Method: HAND - Hand Delivered Heather Days: Prior Verbal Notification: Recipient Understood Notice: Yes Recipient Signature: Yes Med Rec Note Co-signed by Attending: Coverage Notice Comment: ELENA FOR [facility]. Reviewer: [id number] Slim Tobias Notice Issued Date-Time: 02/08/2019 16:32 Notice Type: IM Discharge Notice Notice Delivered To: Family Member Relationship to Patient: Power of Last Pattern Grader Creative Guru Name: LEEANNE CHI Delivery Method: PHONE - Phone Heather Days: Prior Verbal Notification: Yes Recipient Understood Notice: Yes Recipient Signature: Med Rec Note Co-signed by Attending: Coverage Notice Comment: Last DP export: 02/09/19 10:10 am Patient Name: SP GUAMAN Page 62071 at 0826 All edits/amendments must be made on the electronic document DICTATION DATE: 02/10/19825 FISHING VESSEL DECKHAND: HELEN 02/10/19825 RPT#: [id number] DC DATE:02/09/19 STATUS: DIS IN [facility] [address] [place] [address] END OF REPORT
== END 2019-02-09 10:20 | DRG 304 ==
LOC: D.ER 19:16 → D.M3 20:51
PROVIDERS: Family Medicine; Internal Medicine Nephrology; ADMIT Family Medicine Adult Medicine; ATTEND Family Medicine Adult Medicine
DX: I16.0 Hypertensive urgency (principal); G93.41 Metabolic encephalopathy; S22.49XA Multiple fractures of ribs, unspecified side, initial encounter for closed fracture; N39.0 Urinary tract infection, site not specified; N17.9 Acute kidney failure, unspecified; I50.20 Unspecified systolic (congestive) heart failure; I11.0 Hypertensive heart disease with heart failure; W19.XXXA Unspecified fall, initial encounter; D50.9 Iron deficiency anemia, unspecified; E78.5 Hyperlipidemia, unspecified; I25.10 Atherosclerotic heart disease of native coronary artery without angina pectoris; G30.9 Alzheimer's disease, unspecified; F02.80 Dementia in other diseases classified elsewhere, unspecified severity, without behavioral disturbance, psychotic disturbance, mood disturbance, and anxiety; G20 Parkinson's disease; F20.9 Schizophrenia, unspecified; K21.9 Gastro-esophageal reflux disease without esophagitis

== ENCOUNTER 2019-03-01 06:09 | Inpatient (IN) | payer MEDICARE ==
[~2019-03-01] VITALS: Ht 160 cm; Wt 56.7 kg
[2019-03-01 06:41] LABS: BASOPHILS 0.1 % (0-2); EOSINOPHILS 0.4 % (0-7); HEMATOCRIT 34.3 % (36.0-48.0); HEMOGLOBIN 11.3 g/dL (12-16); IMMATURE GRANULOCYTES 0.4 % (0-5); LYMPHOCYTES 4.3 % (15-50); MCH 31.6 pg (26.0-34.0); MCHC 32.9 g/dL (31.0-37.0); MCV 95.8 fL (80.0-100.0); MEAN PLATELET VOLUME 9.9 fL (7.4-10.4); MONOCYTES 5.3 % (2-11); NEUTROPHILS 89.5 % (40-80); RBC 3.58 10x6/uL (4.00-5.40); RDW 13.5 % (11.5-14.5); WBC 17.1 10x3/uL (4.8-10.8)
--- NOTE | 2019-03-01 06:41 | NUR ---
IN AND OUT CATH COMPLETE AND URINE SENT TO LAB
[2019-03-01 06:58] LABS: APTT 33.5 SECONDS (22.8-39.4); INR 1.19 (0.85-1.17); PROTIME 14.6 SECONDS (11.6-15.0)
[2019-03-01 07:00] VITALS: BP 129/64
[2019-03-01 07:03] LABS: PLATELET COUNT 296 10x3/uL (130-400)
[2019-03-01 07:08] LABS: ALKALINE PHOSPHATASE 92 U/L (46-116); ALT (SGPT) 18 U/L (10-68); BILIRUBIN - TOTAL 0.17 mg/dL (0.2-1.3); CALC OSMOLALITY 293 mosm/kg (275-300); CALCIUM 8.8 mg/dL (8.5-10.1); CARBON DIOXIDE 22.3 mmol/L (21.0-32.0); CHLORIDE - SERUM 105 mmol/L (98-107); CREATININE - SERUM 1.2 mg/dL (0.6-1.3); POTASSIUM - SERUM 4.2 mmol/L (3.5-5.1); PROTEIN - SERUM 7.1 g/dL (6.4-8.2); SODIUM 140 mmol/L (136-145); UREA NITROGEN 44 mg/dL (7-18); eGFR NON AFRICAN AMERICAN 45 mL/min (90-120)
[2019-03-01 07:09] LABS: APPEARANCE SL CLDY (CLEAR); BILIRUBIN NEGATIVE (NEGATIVE); COLOR YELLOW (YELLOW); GLUCOSE NEGATIVE (NEGATIVE); KETONE NEGATIVE (NEGATIVE); NITRITE NEGATIVE (NEGATIVE); PROTEIN 3+ mg/dL (NEGATIVE); SPECIFIC GRAVITY 1.025 (1.005-1.020); UROBILINOGEN NORMAL (NORMAL)
[2019-03-01 07:10] LABS: GLUCOSE 165 mg/dL (74-106)
[2019-03-01 07:10] LABS: AMORPHOUS SEDIMENT <1+ /lpf (NONE SEEN); BACTERIA MODERATE /hpf (NONE SEEN); EPITHELIAL CELL CAST OCC /lpf (NONE SEEN); EPITHELIAL CELLS 0-5 /hpf (0-5); GRANULAR CAST RARE /lpf (NONE SEEN); HYALINE CAST OCC /lpf (NONE SEEN); MUCUS <1+ /lpf (NONE SEEN); RED CELLS - URINE OCC /hpf (0-5); WHITE CELLS - URINE 0-5 /hpf (0-5)
--- NOTE | 2019-03-01 07:13 | NUR ---
HAND OFF REPORT RECIEVED FROM OFF GOING NURSE MIRIAN RN
[2019-03-01 07:24] LABS: CKMB 1.4 U/L (0.0-3.6); CREATINE KINASE 36 UL (21-215)
[2019-03-01 07:28] LABS: TROPONIN-I 0.293 ng/mL (0.000-0.060)
--- NOTE | 2019-03-01 07:28 | NUR ---
NOTIFIED BY LAB OF [facility] 0.293. EDP DR. MCDONOUGH NOTIFIED.
[2019-03-01 09:00] VITALS: BP 121/57
--- NOTE | 2019-03-01 09:18 | NUR ---
WILL ADMINISTER ORDERED LEVAQUIN ONCE ORDERED MERREM IS COMPLETE.
--- NOTE | 2019-03-01 09:30 | NUR ---
SPOKE WITH ROSA NURSE AT [facility] TO NOTIFY STAFF THAT PT WAS BEING ADMITTED TO [facility].
--- NOTE | 2019-03-01 09:52 | NUR ---
ORDERED MERREM INITATED AT 0917 COMPLETE AT 0947.
--- NOTE | 2019-03-01 10:00 | NUR ---
PRIOR TO CALLING REPORT TO CONSTANZA URIBE AT 0940, THIS NURSE CHECKED PT'S TEMP AND THERMOMETER READ 98.0, PRIOR TO LEAVING THE ED AT 1000, PT'S TEMP RECHECKED TO VERIFY READING AND RESULT WAS 99.0. PT'S SOILED BRIEF ALSO CHANGED AND PERICARE PERFORMED PRIOR TO BEING TRASNPORTED TO ROOM 2201 FROM ED.
--- NOTE | 2019-03-01 10:00 | NUR ---
RECEIVED TO ROOM 2201 VIA STRETCHER FROM ER. FAMILY AT BEDSIDE. ROUSES TO VERBAL AND TACTILE SENSATION. SKIN IS INTACT WITHOUT REDNESS. LEVAQUIN INFUSING AT THIS TIME. DENIES NEEDS. ADMISSION ASSESSMENT COMPLETED.
[2019-03-01 11:14] VITALS: BP 117/56; BMI 22.1
--- NOTE | 2019-03-01 13:05 | MORECARE ---
CASE MANAGEMENT DISCHARGE SUMMARY PATIENT: SP GUAMAN UNIT: [id number] ADM DATE: 03/01/19 AGE: 84 : 35 SEX: F ROOM/BED: D.2201 AUTHOR: ANNAMARIA MA PHYSICIAN: REFERRING PHYSICIAN: ROXANE HUGHES MD DATE OF SERVICE: 03/01/19 Discharge Plan Patient Name: SP GUAMAN [facility] [facility] 1935 Planned Disposition: Anticipated Discharge Date: Discharge Date: Expected LOS: Initial Reviewer: [id number] Initial Review Date: 03/01/2019 Generated: 03/01/19 2:04 pm Patient Name: SP GUAMAN Page 34725 at 1305 All edits/amendments must be made on the electronic document DICTATION DATE: 03/01/19 1304 ORCHESTRA DIRECTOR: HELEN 03/01/19 1304 RPT#: [id number] DC DATE: STATUS: ADM IN [facility] [address] [place] [address] END OF REPORT
[2019-03-01 13:45] VITALS: BP 117/81
--- NOTE | 2019-03-01 15:47 | NUR ---
OT NOTE: PT COMPLETED SIMPLE FACE WASH WITH MOD A. THANK YOU,DRE DE LA TORRE
[2019-03-01 21:23] VITALS: BP 134/41
--- NOTE | 2019-03-01 22:00 | NUR ---
PT IV INFULTRATED. NEW IV SITE LT FA 22G. PT TOLERATED WELL. ONE ATTEMPT. WILL CONTINUE PLAN OF CARE.
[2019-03-02 01:57] VITALS: BP 158/64
[2019-03-02 04:10] LABS: BASOPHILS 0.1 % (0-2); EOSINOPHILS 0.2 % (0-7); HEMATOCRIT 28.2 % (36.0-48.0); HEMOGLOBIN 9.4 g/dL (12-16); IMMATURE GRANULOCYTES 0.3 % (0-5); LYMPHOCYTES 7.4 % (15-50); MCH 31.3 pg (26.0-34.0); MCHC 33.3 g/dL (31.0-37.0); MEAN PLATELET VOLUME 10.4 fL (7.4-10.4); MONOCYTES 5.9 % (2-11); NEUTROPHILS 86.1 % (40-80); PLATELET COUNT 254 10x3/uL (130-400); RDW 13.4 % (11.5-14.5)
[2019-03-02 04:14] LABS: WBC 11.8 10x3/uL (4.8-10.8)
--- NOTE | 2019-03-02 04:20 | NUR ---
I have reviewed this patient and I concur with the Shift Assessment completed by the Licensed Practical Nurse today this shift.
--- NOTE | 2019-03-02 04:31 | NUR ---
PT RESTING IN BED. EYES CLOSED. NO SIGNS OF DISTRESS. BREATHING EVEN AND UNLABORED. CALL LIGHT IN REACH. STONE ALARM ON. WILL CONTINUE PLAN OF CARE.
[2019-03-02 04:37] LABS: ALBUMIN 2.5 g/dL (3.4-5.0); ANION GAP 16.1 mmol/L (8-16); BILIRUBIN - TOTAL 0.31 mg/dL (0.2-1.3); CALCIUM 8.5 mg/dL (8.5-10.1); CARBON DIOXIDE 23.7 mmol/L (21.0-32.0); CREATININE - SERUM 1.3 mg/dL (0.6-1.3); POTASSIUM - SERUM 3.8 mmol/L (3.5-5.1); PROTEIN - SERUM 6.6 g/dL (6.4-8.2)
[2019-03-02 05:41] VITALS: BP 142/58
[2019-03-02 09:42] VITALS: BP 140/52
--- NOTE | 2019-03-02 09:52 | NUR ---
MORNIGN ASSESSMENT COMPLETE. SEE ASSESSMENT FLOWSHEET FOR FURHTER DETIALS. PT LYING IN BED. DENIES NEEDS AT THIS TIME. FAMILY AT BEDSIDE. CL IN REACH. SIDE RAILS UP X3 FOR PT SAFETY. BED IN LOWEST POSITION.
--- NOTE | 2019-03-02 10:16 | NUR ---
L FA PIV IN FILTRATED. RESITED TO R FA 22G X1 ATTEMPT. FLUSHES WELL. PT TOLERATED WELL. FAM MNEMEBER AT BEDSIDE
[2019-03-02 12:52] VITALS: BP 129/51
--- NOTE | 2019-03-02 13:00 | NUR ---
OT NOTE: MUCH BETTER TODAY. BED MOB WITH MOD ASSIST. STATIC SITTING ON EOB WITH CGA. SIT TO STAND WITH WALKER AND MIN ASSIST; ABLE TO TAKE 5-6 STEPS TO CHAIR WITH MIN ASSIST. REST BREAK IN CHAIR REQUIRED, THEN PT ABLE TO STAND FOR APPROX 3 MIN WHILE PERINEAL CARE WAS PERFORMED. ALARM PAD PLACED IN CHAIR. TALKED WITH GRAND DTR WHO REPORTED THAT SHE WOULD BE THERE WITH PT THROUGHOUT THE DAY. OBI WATSON, OTR/L
[2019-03-02 14:09] VITALS: Ht 160 cm; Wt 56.7 kg
[2019-03-02 17:06] VITALS: BP 118/46
[2019-03-02 20:00] VITALS: BP 136/58
--- NOTE | 2019-03-02 20:00 | NUR ---
ALERT AND CONFUSED RESTING IN BED NOP APPPARENT DISTRESS, SEE SHIFT ASSESSMENT CALL [facility]
[2019-03-03] VITALS: BP 134/50
[2019-03-03 04:00] VITALS: BP 130/60
[2019-03-03 07:27] LABS: BASOPHILS 0.2 % (0-2); EOSINOPHILS 3.4 % (0-7); HEMATOCRIT 29.8 % (36.0-48.0); HEMOGLOBIN 9.8 g/dL (12-16); IMMATURE GRANULOCYTES 0.4 % (0-5); LYMPHOCYTES 15.3 % (15-50); MCH 31.2 pg (26.0-34.0); MCHC 32.9 g/dL (31.0-37.0); MCV 94.9 fL (80.0-100.0); MEAN PLATELET VOLUME 10.4 fL (7.4-10.4); MONOCYTES 6.5 % (2-11); NEUTROPHILS 74.2 % (40-80); RBC 3.14 10x6/uL (4.00-5.40); RDW 13.3 % (11.5-14.5)
--- NOTE | 2019-03-03 07:30 | NUR ---
AWAKE AND ALERT. ORIENTED X3. NO C/O AT THIS TIME. LUNGS ARE CLEAR BUT DIMINISHED. OCCASSIONAL DRY COUGH NOTED. SKIN IS INTACT WITHOUT REDNESS. IV TO RIGHT HAND IS PATENT WITHOUT REDNESS AT INSERTION SITE. FAMILY AT BEDSIDE.
[2019-03-03 07:35] LABS: PLATELET COUNT 313 10x3/uL (130-400)
[2019-03-03 07:54] LABS: ALBUMIN 2.6 g/dL (3.4-5.0); BILIRUBIN - TOTAL 0.26 mg/dL (0.2-1.3); CALCIUM 8.8 mg/dL (8.5-10.1); CARBON DIOXIDE 26.4 mmol/L (21.0-32.0); CREATININE - SERUM 1.3 mg/dL (0.6-1.3); PROTEIN - SERUM 6.7 g/dL (6.4-8.2)
[2019-03-03 07:55] LABS: ANION GAP 12.7 mmol/L (8-16); POTASSIUM - SERUM 3.1 mmol/L (3.5-5.1)
[2019-03-03 08:41] VITALS: BP 164/64
--- NOTE | 2019-03-03 10:00 | NUR ---
AMBULATED TO BR WITH MIN OF ONE USING RW. VOIDED WITHOUT DIFFICUTLY. TOOK ALL OF AM MEDS IN PUDDING. REFUSED MOST OF BREAKFAST.
--- NOTE | 2019-03-03 11:15 | NUR ---
OT NOTE: PT DOING WELL; MOD ASSIST WITH BED MOB; MIN ASSIST FOR SIT TO STAND AND TRANSFER TO CHAIR WTIH WALKER AND MIN ASSIST; EXTENSIVE ASSIST WITH TOILET HYGIENE; SET UP FOR WASHING FACE AND HANDS; EXT ASSIST WITH REMAINDER OF BATHING. PT REPORTING PAIN IN HAND AT IV SITE. SITTING UP IN CHAIR. ALARM ON AND IN PLACE; PILLOW POSITIONED UNDER R ARM. NO NEEDS PER PT. OBI WATSON, OTR/L
[2019-03-03] MEDS ORDERED: MUCINEX600 MG PO (11:22)
[2019-03-03] MEDS ORDERED: TESSALON PERLE100 MG PO (11:22)
[2019-03-03] MEDS ORDERED: LEVAQUIN750 MG PO (11:23)
[2019-03-03] MEDS ORDERED: OMNICEF300 MG PO (11:26)
--- NOTE | 2019-03-03 11:36 | MORECARE ---
CASE MANAGEMENT DISCHARGE SUMMARY PATIENT: SP ARECHIGA UNIT: [id number] ADM DATE: 03/01/19 AGE: 84 : 35 SEX: F ROOM/BED: D.2201 AUTHOR: ANNAMARIA MA PHYSICIAN: REFERRING PHYSICIAN: ROXANE HUGHES MD DATE OF SERVICE: 03/03/19 Discharge Plan Patient Name: SP ARECHIGA Facility: [facility]:[place] : 1935 Planned Disposition: Jail Facility Anticipated Discharge Date: Discharge Date: Expected LOS: Initial Reviewer: [id number] Initial Review Date: 03/01/2019 Generated: 03/03/19 12:36 pm DCPIA - Discharge Planning Initial Assessment Updated by [email or web address]: Shannan Munoz on 03/03/19 11:30 am * Is the patient Alert and Oriented? Yes * PCP verser * Pharmacy [facility] * Preadmission Environment Jail Facility * Facility Name [facility] re[facility] * ADLs Partial Dependent * Partial ADLs (Assistance needed) Ambulation * List name and contact numbers for known caregivers / representatives who currently or will assist patient after discharge: Aubrey Arechiga ([phone]) Son * Verbal permission to speak to the caregivers and representatives has been obtained from the patient. Yes * Additional services required to return to the preadmission environment? Yes * Can the patient safely return to the preadmission environment? Yes * Has this patient been hospitalized within the prior 30 days at any hospital? No Last DP export: 03/01/19 12:04 p Patient Name: SP ARECHIGA Page 91186 at 1136 All edits/amendments must be made on the electronic document DICTATION DATE: 03/03/19 113 FIBER OPTIC ASSEMBLY WORKER: HELEN 03/03/19 1135 RPT#: [id number] DC DATE: STATUS: ADM IN [facility] [address] [place] [address] END OF REPORT
--- NOTE | 2019-03-03 11:44 | MORECARE ---
CASE MANAGEMENT DISCHARGE SUMMARY PATIENT: SP ARECHIGA UNIT: [id number] ADM DATE: 03/01/19 AGE: 84 : 35 SEX: F ROOM/BED: D.2201 AUTHOR: ANNAMARIA MA PHYSICIAN: REFERRING PHYSICIAN: ROXANE HUGHES MD DATE OF SERVICE: 03/03/19 Discharge Plan Patient Name: SP ARECHIGA Facility: [facility]:[place] : 1935 Planned Disposition: [facility]sp Facility Anticipated Discharge Date: Discharge Date: Expected LOS: Initial Reviewer: [id number] Initial Review Date: 03/01/2019 Generated: 03/03/19 12:44 pm Comments DCP- Discharge Planning Updated by [id number]: Shannan Munoz on 03/03/19 10:[address] Patient Name: SP ARECHIGA Admission Status: ER Accout number: [id number] Admission Date: 03-01-2019 : 1935 Admission Diagnosis: Attending: ROXANE HUGHES Current LOS: 2 Anticipated DC Date: Planned Disposition: Usp Facility Primary Insurance: MEDICARE A & B Discharge Planning Comments: CM met with patient and son, Vishal to assess discharge planning needs. Patient was admitted for [facility] where she was in a skilled bed. She will return there today to a skilled bed, then transition to a intermodal dispatcher bed. Her son Vishal is at bedside ELENA signed. They will pick her up today with their transportation [place]: Shannan Munoz DCPIA - Discharge Planning Initial Assessment Updated by [email or web address]: Shannan Munoz on 03/03/19 11:30 am * Is the patient Alert and Oriented? Yes * PCP verser * Pharmacy [facility] * Preadmission Environment Usp Facility * Facility Name [facility] * ADLs Partial Dependent * Partial ADLs (Assistance needed) Ambulation * List name and contact numbers for known caregivers / representatives who currently or will assist patient after discharge: Vishal Arechiga ([phone]) Son * Verbal permission to speak to the caregivers and representatives has been obtained from the patient. Yes * Additional services required to return to the preadmission environment? Yes * Can the patient safely return to the preadmission environment? Yes * Has this patient been hospitalized within the prior 30 days at any hospital? No Coverage Notice Reviewer: [id number] Slim Munoz Notice Issued Date-Time: 03/03/2019 11:25 Notice Type: Patient Choice Letter Notice Delivered To: Relationship to Patient: Son Tray Server Name: vishal arechiga Delivery Method: - Heather Days: Prior Verbal Notification: Recipient Understood Notice: Recipient Signature: Med Rec Note Co-signed by Attending: Coverage Notice Comment: Last DP export: 03/03/19 10:36 a Patient Name: SP ARECHIGA Page [id number] at 1144 All edits/amendments must be made on the electronic document DICTATION DATE: 03/03/19 1143 SLIP SEAT COVERER: HELEN 03/03/19 1143 RPT#: [id number] DC DATE: STATUS: ADM IN [facility] [address] [place] [address] END OF REPORT
--- NOTE | 2019-03-03 11:54 | MORECARE ---
CASE MANAGEMENT DISCHARGE SUMMARY PATIENT: SP ARECHIGA UNIT: [id number] ADM DATE: 03/01/19 AGE: 84 : 35 SEX: F ROOM/BED: D.2201 AUTHOR: ANNAMARIA MA PHYSICIAN: REFERRING PHYSICIAN: ROXANE HUGHES MD DATE OF SERVICE: 03/03/19 Discharge Plan Patient Name: SP ARECHIGA Facility: [facility]:[place] : 1935 Planned Disposition: Usp Facility Anticipated Discharge Date: Discharge Date: Expected LOS: Initial Reviewer: [id number] Initial Review Date: 03/01/2019 Generated: 03/03/19 12:54 pm Comments DCP- Discharge Planning Updated by [email or web address]: Shannan Munoz on 03/03/19 10:[address] Patient Name: SP ARECHIGA Admission Status: ER Accout number: [id number] Admission Date: 03-01-2019 : 1935 Admission Diagnosis: Attending: ROXANE HUGHES Current LOS: 2 Anticipated DC Date: Planned Disposition: [facility]sp Facility Primary Insurance: MEDICARE A & B Discharge Planning Comments: CM met with patient and son, Vishal to assess discharge planning needs. Patient was admitted for [facility] where she was in a skilled bed. She will return there today to a skilled bed, then transition to a line analyst bed. Her son Vishal is at bedside ELENA signed. They will pick her up today with their transportation Business Writer: Shannan Munoz DCPIA - Discharge Planning Initial Assessment Updated by [email or web address]: Shannan Munoz on 03/03/19 11:30 am * Is the patient Alert and Oriented? Yes * PCP verser * Pharmacy [facility] * Preadmission Environment [facility] Facility * Facility Name [facility] * ADLs Partial Dependent * Partial ADLs (Assistance needed) Ambulation * List name and contact numbers for known caregivers / representatives who currently or will assist patient after discharge: Vishal Arechiga ([phone]) Son * Verbal permission to speak to the caregivers and representatives has been obtained from the patient. Yes * Additional services required to return to the preadmission environment? Yes * Can the patient safely return to the preadmission environment? Yes * Has this patient been hospitalized within the prior 30 days at any hospital? No External Providers External Provider: [facility] Next Contact Date: Service Request Date: Service Type: Resolution: Reviewer: Comments: Coverage Notice Reviewer: [id number] Slim Munoz Notice Issued Date-Time: 03/03/2019 11:25 Notice Type: Patient Choice Letter Notice Delivered To: Relationship to Patient: Son Bench Molder Name: vishal arechiga Delivery Method: - Heather Days: Prior Verbal Notification: Recipient Understood Notice: Recipient Signature: Med Rec Note Co-signed by Attending: Coverage Notice Comment: Last DP export: 03/03/19 10:44 a Patient Name: SP ARECHIGA Page [id number] at 1154 All edits/amendments must be made on the electronic document DICTATION DATE: 03/03/19 115 MAT REPAIRER: HELEN 03/03/19 1153 RPT#: [id number] DC DATE: STATUS: ADM IN [facility] [address] [place] [address] END OF REPORT
--- NOTE | 2019-03-03 12:00 | NUR ---
REPORT CALLED TO ASHWIN CONTRERAS LPN AT [facility]. ALL QUESTIONS ANSWERED.
--- NOTE | 2019-03-03 12:52 | NUR ---
DISCHARGED TO [facility] VIA THEIR TRANSPORT. DISCHARGE INSTRUCTIONS GIVEN BOTH VERBALLY AND WRITTEN. ALL QUESTIONS ANSWERED. FAMILY VERBALIZED UNDERSTANDING OF SAME. IV TO RIGHT HAND D/C WITH CATHETER INTACT. ALL BELONGINGS WITH PATIENT.
--- NOTE | 2019-03-03 15:00 | MORECARE ---
CASE MANAGEMENT DISCHARGE SUMMARY PATIENT: SP ARECHIGA UNIT: [id number] ADM DATE: 03/01/19 AGE: 84 : 35 SEX: F ROOM/BED: D.2201 AUTHOR: ANNAMARIA MA PHYSICIAN: REFERRING PHYSICIAN: ROXANE HUGHES MD DATE OF SERVICE: 03/03/19 Discharge Plan Patient Name: SP ARECHIGA Facility: [facility]:[place] : 1935 Planned Disposition: Fdc Facility Anticipated Discharge Date: Discharge Date: 03/03/2019 Expected LOS: 0 Initial Reviewer: [id number] Initial Review Date: 03/01/2019 Generated: 03/03/19 4:00 pm Comments DCP- Discharge Planning Updated by [email or web address]: Shannan Munoz on 03/03/19 10:[address] Patient Name: SP ARECHIGA Admission Status: ER Accout number: [id number] Admission Date: 03-01-2019 : 1935 Admission Diagnosis: Attending: ROXANE HUGHES Current LOS: 2 Anticipated DC Date: Planned Disposition: [facility]dc Facility Primary Insurance: MEDICARE A & B Discharge Planning Comments: CM met with patient and son, Vishal to assess discharge planning needs. Patient was admitted for [facility] where she was in a skilled bed. She will return there today to a skilled bed, then transition to a usp bed. Her son Vishal is at bedside ELENA signed. They will pick her up today with their transportation Drama Therapist: Shannan Munoz DCPIA - Discharge Planning Initial Assessment Updated by [email or web address]: Shannan Mnuoz on 03/03/19 11:30 am * Is the patient Alert and Oriented? Yes * PCP verser * Pharmacy [facility] * Preadmission Environment [facility] Facility * Facility Name [facility] * ADLs Partial Dependent * Partial ADLs (Assistance needed) Ambulation * List name and contact numbers for known caregivers / representatives who currently or will assist patient after discharge: Vishal Arechiga ([phone]) Son * Verbal permission to speak to the caregivers and representatives has been obtained from the patient. Yes * Additional services required to return to the preadmission environment? Yes * Can the patient safely return to the preadmission environment? Yes * Has this patient been hospitalized within the prior 30 days at any hospital? No Coverage Notice Reviewer: [id number] Slim Munoz Notice Issued Date-Time: 03/03/2019 11:25 Notice Type: Patient Choice Letter Notice Delivered To: Relationship to Patient: Son Real Estate Professional Name: vishal arechiga Delivery Method: - Heather Days: Prior Verbal Notification: Recipient Understood Notice: Recipient Signature: Med Rec Note Co-signed by Attending: Coverage Notice Comment: Last DP export: 03/03/19 10:54 a Patient Name: SP ARECHIGA Page [id number] at 1500 All edits/amendments must be made on the electronic document DICTATION DATE: 03/03/191458 GRAIN RECEIVER: HELEN 03/03/19 145 RPT#: [id number] DC DATE:03/03/19 STATUS: DIS IN [facility] [address] [place] [address] END OF REPORT
== END 2019-03-03 12:54 | DRG 193 ==
LOC: D.ER 06:09 → D.MS 09:09
PROVIDERS: Family Medicine; ADMIT Emergency Medicine; ATTEND Emergency Medicine
DX: J18.9 Pneumonia, unspecified organism (principal); G93.41 Metabolic encephalopathy; R53.2 Functional quadriplegia; J44.0 Chronic obstructive pulmonary disease with (acute) lower respiratory infection; J44.1 Chronic obstructive pulmonary disease with (acute) exacerbation; I50.9 Heart failure, unspecified; E86.0 Dehydration; I11.0 Hypertensive heart disease with heart failure